=== PATIENT | male | born 1970 | race Caucasian/White ===

== ENCOUNTER 2016-07-22 14:10 | Inpatient (IN) | payer OTHER ==
[2016-07-22 15:37] VITALS: BMI 25.8
--- NOTE | 2016-07-22 17:04 | HP ---
COWS - Scale Resting Pulse: 0= [place] 80 or Below Sweatin= Chills/Flushing Restless Observation: 3= Extraneous Movement Pupil Size: 0= Normal to Room Light Bone or Joint Aches: 2= Severe Diffuse Aches Runny Nose/ Eye Tearin= Runny Nose/Eyes GI Upset > 30mins: 1= Stomach Cramp Tremor Observation: 2= Slight Tremor Visible Yawning Observation: 1= 1-2x During Session Anxiety or Irritability: 2=Irritable/Anxious Goose Flesh Skin: 0=Smooth Skin COWS Score: 14 Admission [facility] Chief Complaint: withdrawal sx Allergies/Adverse Reactions: Allergies Allergy/AdvReac Type Severity Reaction Status Date / Time No Known Allergies Allergy Verified 06/07/14 12:29 History of Present Illness: 45 years old male with long history of opium nicotine dependence has positive ppd and depression is admitted to detox Exam Limitations: No Limitations - Ebola screening Have you traveled outside of the country in the last 21 days: No Have you had contact with anyone from an Ebola affected area: No Have you been sick,other than usual withdrawal symptoms: No Do you have a fever: No - Review of Systems Constitutional: Chills, Loss of Appetite, Changes in sleep, Unintentional Wgt. Loss, Unexplained wgt Loss EENT: reports: No Symptoms Reported Respiratory: reports: No Symptoms reported Cardiac: reports: No Symptoms Reported GI: reports: Nausea, Poor Appetite, Poor Fluid Intake, Abdominal cramping : reports: No Symptoms Reported Musculoskeletal: reports: Back Pain, Joint Pain, Muscle Pain, Neck Pain Integumentary: reports: Change in Color (left inner elbow iv opium) Neuro: reports: Tremors Endocrine: reports: No Symptoms Reported Hematology: reports: No Symptoms Reported Psychiatric: reports: Judgement Intact, Orientated x3, Depressed Other Systems: Reviewed and Negative Patient History - Patient Medical History Hx Anemia: No Hx Asthma: No Hx Chronic Obstructive Pulmonary Disease (COPD): No Hx Cancer: No Hx Cardiac Disorders: No Hx Congestive Heart Failure: No Hx Hypertension: No Hx Hypercholesterolemia: No Hx Pacemaker: No HX Cerebrovascular Accident: No Hx Seizures: No Hx Dementia: No Hx Diabetes: No Hx Gastrointestinal Disorders: No Hx Liver Disease: No Hx Genitourinary Disorders: No Hx Sexually Transmitted Disorders: No Hx Renal Disease (ESRD): No Hx Thyroid Disease: No Hx Human Immunodeficiency Virus (HIV): No (negative) Hx Hepatitis C: Yes (diagnosed 2006) Hx Depression: Yes Hx Suicide Attempt: No Hx Bipolar Disorder: No Hx Schizophrenia: No - Patient Surgical History Past Surgical History: No Hx Neurologic Surgery: No Hx Cataract Extraction: No Hx Cardiac Surgery: No Hx Lung Surgery: No Hx Breast Surgery: No Hx Breast Biopsy: No Hx Abdominal Surgery: No Hx Appendectomy: No Hx Cholecystectomy: No Hx Genitourinary Surgery: No Hx Orthopedic Surgery: No Hx Hysterectomy: No - PPD History Previous Implant?: Yes Documented Results: Positive w/o proof Implanted On Prior [facility] Admission?: No PPD to be Administered?: No - Smoking Cessation Smoking history: Current every day smoker Have you smoked in the past 12 months: Yes Aproximately how many cigarettes per day: 6 If you are a former smoker, when did you quit?: 01/12/12 Cigars Per Day: 0 Hx Chewing Tobacco Use: No Initiated information on smoking cessation: Yes 'Breaking Loose' booklet given: 07/22/16 - Substance & Tx. History Hx Alcohol Use: No Hx Substance Use: Yes Substance Use Type: Heroin, Marijuana Hx Substance Use Treatment: Yes (12/17/15-12/21/15 ) - Substances Abused Heroin Route: Injection Frequency: Daily Amount used: 4 bags Age of first use: 17 Date of Last Use: 07/22/16 Marijuana/Hashish Route: Smoking Frequency: Daily Amount used: 10$ Age of first use: 16 Date of Last Use: 07/21/16 Family Disease History - Family Disease History Family Disease History: Diabetes: Father, Mother (alive) Admission Physical Exam S - Vital Signs Vital Signs: Vital Signs - 24 hr 07/22/16 15:34 Pulse Rate 80 Respiratory 18 Rate Blood Pressure 105/67 - Physical General Appearance: Yes: Appropriately Dressed, Mild Distress, Thin, Tremorous, Irritable, Sweating, Anxious HEENTM: Yes: Hearing grossly Normal, Normal ENT Inspection, Normocephalic, Normal Voice Respiratory: Yes: Chest Non-Tender, Lungs Clear, Normal Breath Sounds, No Respiratory Distress, No Accessory Muscle Use Neck: Yes: Supple, Trachea in good position Breast: Yes: Breasts Symetrical Cardiology: Yes: Regular Rhythm, Regular Rate, S1, S2 Abdominal: Yes: Non Tender, Soft, Increased Bowel Sounds Genitourinary: Yes: Within Normal Limits Back: Yes: Normal Inspection Musculoskeletal: Yes: full range of Motion, Gait Steady, Back pain, Muscle Pain Extremities: Yes: Normal Range of Motion, Non-Tender, Tremors, Other (right fore arm iv opium) Neurological: Yes: Fully Oriented, Alert, Motor Strength 5/5, Normal Response, Depressed Affect Integumentary: Yes: Warm, Track [place] Lymphatic: Yes: Within Normal Limits - Diagnostic (1) Nicotine dependence Current Visit: Yes Status: Acute Qualifiers: Nicotine product type: cigarettes Substance use status: in withdrawal Qualified Code(s): F17.213 - Nicotine dependence, cigarettes, with withdrawal (2) Opioid dependence with withdrawal Current Visit: Yes Status: Acute (3) Cannabis dependence, uncomplicated Current Visit: Yes Status: Chronic (4) Abrasion of skin Current Visit: Yes Status: Acute (5) Weight loss Current Visit: Yes Status: Acute (6) Positive PPD, treated Current Visit: Yes Status: Resolved (7) Hepatitis C antibody test positive Current Visit: Yes Status: Resolved Comment: treated (8) Depression (emotion) Current Visit: Yes Status: Suspected Qualifiers: Depression Type: dysthymia Qualified Code(s): F34.1 - Dysthymic disorder Cleared for Admission [facility] - Detox or Rehab [facility] Level of Care: Medically Managed Detox Regimen/Protocol: Methadone [facility] Breath Alcohol Content Breath Alcohol Content: 0 Urine Drug Screen - Results Drug Screen Negative: No Urine Drug Screen Results: THC-Marijuana, OPI-Opiates, PCP-Phencyclidine
[2016-07-22] MEDS ORDERED: MAGNESIUM HYDROX 2400MG/30ML ORAL SUSPENSION 30 ML CUP PO PRN (17:05)
[2016-07-22] MEDS ORDERED: METHADONE HCL 10 MG TABLET (FOR DETOX USE ONLY) PO ONE ×2 (17:05→23:00)
[2016-07-22] MEDS ORDERED: MAG HYDROX/AL HYDROX/SIMETH 30 ML UNIT-DOSE CUP PO PRN (17:05)
[2016-07-22] MEDS ORDERED: IBUPROFEN 400 MG TABLET (FP) PO PRN (17:05)
[2016-07-22] MEDS ORDERED: LOPERAMIDE HCL 2 MG CAPSULE PO PRN (17:05)
[2016-07-22] MEDS ORDERED: ACETAMINOPHEN 325 MG TABLET (FP) PO PRN (17:05)
[2016-07-22] MEDS ORDERED: guaiFENesin/D-METHORPHAN HB 10 ML UNIT-DOSE CUPS PO PRN (17:05)
[2016-07-22] MEDS ORDERED: P-EPHED 60MG/TRIPROLIDI 2.5MG TABLET PO PRN (17:05)
[2016-07-22] MEDS ORDERED: MAGNESIUM CITRATE 300 ML BOTTLE PO PRN (17:05)
[2016-07-22] MEDS ORDERED: MENTHOL/PHENOL 1 EACH UD MM PRN (17:05)
[2016-07-22] MEDS ORDERED: METHADONE HCL 10 MG TABLET (FOR DETOX USE ONLY) ONE (19:26)
[2016-07-22] MEDS: diazePAM 5 MG TABLET PO PRN (19:32)
[2016-07-22] MEDS: diphenhydrAMINE HCL 50 MG CAPSULE PO PRN (22:17)
[2016-07-22] MEDS: THIAMINE HCL 100 MG TABLET (FP) PO SCH (22:17)
[2016-07-22 23:40] LABS: URINE APPEARANCE CLEAR; URINE BILIRUBIN NEGATIVE (NEGATIVE); URINE BLOOD NEGATIVE (NEGATIVE); URINE COLOR DKYELLOW; URINE GLUCOSE (UA) NEGATIVE (NEGATIVE); URINE KETONE NEGATIVE (NEGATIVE); URINE LEUK ESTERASE NEGATIVE (NEGATIVE); URINE NITRITE NEGATIVE (NEGATIVE); URINE PROTEIN NEGATIVE (NEGATIVE); URINE UROBILINOGEN NEGATIVE E.U./dl (0.2-1.0)
[2016-07-23] MEDS: diazePAM 5 MG TABLET PO PRN ×4 (05:48→23:23)
[2016-07-23] MEDS: NICOTINE POLACRILEX 2 MG GUM BC PRN ×5 (05:49→23:24)
[2016-07-23 09:46] LABS: MCH 28.8 pg (25.7-33.7); MCHC 32.8 g/dl (32.0-35.9); MEAN CELL VOLUME 87.9 fl (80-96); PLATELET COUNT 148 K/MM3 (134-434); RDW 14.4 % (11.9-15.9); WHITE BLOOD COUNT 3.6 K/mm3 (4.0-10.0)
[2016-07-23] MEDS ORDERED: METHADONE HCL 10 MG TABLET (FOR DETOX USE ONLY) PO ONE (10:00)
--- NOTE | 2016-07-23 10:05 | EKG ---
Test Reason : Blood Pressure : / mmHG Vent. Rate : 057 BPM Atrial Rate : 057 BPM P-R Int : 136 ms QRS Dur : 086 ms QT Int : 394 ms P-R-T Axes : 051 058 017 degrees QTc Int : 383 ms SINUS BRADYCARDIA NO PREVIOUS ECGS AVAILABLE Confirmed by DOMINICK KWONG MD ([id number]) on 07/23/2016 10:05:11 AM Referred By: Confirmed By:DOMINICK KWONG MD
[2016-07-23 10:14] LABS: ALBUMIN 3.2 g/dl (3.4-5.0); ALK PHOS 70 U/L (45-117); ANION GAP 8 (8-16); BILIRUBIN,TOTAL 0.6 mg/dL (0.2-1.0); CALCIUM 8.6 mg/dL (8.5-10.1); CO2 27 mmol/L (21-32); COCKROFT - GAULT 132.29; CREATININE 0.8 mg/dL (0.7-1.3); GLUCOSE,RANDOM 89 mg/dL (74-106); SGOT/AST 20 U/L (15-37); SGPT/ALT 28 U/L (12-78); TOT PROT 6.5 g/dl (6.4-8.2)
[2016-07-23] MEDS: PRENATAL VITAMINS W/ FOLIC ACID TABLET (FP) PO SCH (10:21)
[2016-07-23] MEDS: BACITRACIN 0.9 GM PACKET TP SCH (10:21)
[2016-07-23] MEDS: NICOTINE 14 MG/24 HOURS TOPICAL PATCH TD SCH (10:21)
--- NOTE | 2016-07-23 14:29 | PN ---
BHS COWS - Scale Resting Pulse: 0= [place] 80 or Below Sweatin=Flushed/Facial Moisture Restless Observation: 1= Difficult to Sit Still Pupil Size: 0= Normal to Room Light Bone or Joint Aches: 1= Mild Discomfort Runny Nose/ Eye Tearin= Runny Nose/Eyes GI Upset > 30mins: 2= Nausea/Diarrhea Tremor Observation of Outstretched Hands: 2= Slight Tremor Visible Yawning Observation: 1= 1-2x During Session Anxiety or Irritability: 2=Irritable/Anxious Goose Flesh Skin: 0=Smooth Skin COWS Score: 13 BHS Progress Note (SOAP) Subjective: Anxiety,sweating,muscle aches/spasm,restless. Objective: 07/23/16 14:28 Vital Signs - 8 hr 07/23/16 10:33 Temperature 97.1 F L Pulse Rate 57 L Respiratory 18 Rate Blood Pressure 125/82 Laboratory Tests 07/22/16 07/23/16 07/23/16 22:35 07:00 07:00 WBC 3.6 L RBC 4.31 Hgb 12.4 Hct 37.9 MCV 87.9 MCHC 32.8 RDW 14.4 Plt Count 148 MPV 8.0 Sodium 140 Potassium 3.8 Chloride 105 Carbon Dioxide 27 Anion Gap 8 BUN 19 H Creatinine 0.8 Creat Clearance w eGFR > 60 Random Glucose 89 Calcium 8.6 Total Bilirubin 0.6 D AST 20 ALT 28 D Alkaline Phosphatase 70 Total Protein 6.5 Albumin 3.2 L Urine Color Dkyellow Urine Appearance Clear Urine pH 5.0 Ur Specific [place] 1.025 Urine Protein Negative Urine Glucose (UA) Negative Urine Ketones Negative Urine Blood Negative Urine Nitrite Negative Urine Bilirubin Negative Urine Urobilinogen Negative Ur Leukocyte Esterase Negative RPR Titer 07/23/16 07:00 WBC RBC Hgb Hct MCV MCHC RDW Plt Count MPV Sodium Potassium Chloride Carbon Dioxide Anion Gap BUN Creatinine Creat Clearance w eGFR Random Glucose Calcium Total Bilirubin AST ALT Alkaline Phosphatase Total Protein Albumin Urine Color Urine Appearance Urine pH Ur Specific [place] Urine Protein Urine Glucose (UA) Urine Ketones Urine Blood Urine Nitrite Urine Bilirubin Urine Urobilinogen Ur Leukocyte Esterase RPR Titer Nonreactive labs noted Assessment: 07/23/16 14:29 Withdrawal sx. Plan: Continue detox
--- NOTE | 2016-07-23 15:29 | CONSULT ---
[facility] Psychiatric Consult - Data Date of interview: 07/23/16 Admission source: [facility] Identifying data: [facility]mission [facility] for this 45 y/o male seeking detoox treatment for heroin,marijuana and phencyclidine dependence.Patient is single without children,domiciled,unemployed and supported on welfare. Substance Abuse History: - Smoking Cessation. Smoking history: Current every day smoker. Have you smoked in the past 12 months: Yes. Aproximately how many cigarettes per day: 6. If you are a former smoker, when did you quit?: . Cigars Per Day: 0. Hx Chewing Tobacco Use: No. Initiated information on smoking cessation: Yes. 'Breaking Loose' booklet given: 07/22/16. - Substance & Tx. History. Hx Alcohol Use: No. Hx Substance Use: Yes. Substance Use Type : Heroin, Marijuana. Hx Substance Use Treatment: Yes (12/17/15-12/21/15 ). - Substances Abused. Heroin. Route: Injection. Frequency: Daily. Amount used: 4 bags. Age of first use: 17. Date of Last Use: 07/22/16. Marijuana/ Hashish. Route: Smoking. Frequency: Daily. Amount used: 10$. Age of first use: 16. Date of Last Use: 07/21/16. Confirmed by patient. Medical History: Hepatitis C. Psychiatric History: Patient denies. Physical/Sexual Abuse/Trauma History: Patient denies. Additional Comment: Urine Drug Screen Results: THC-Marijuana, OPI-Opiates, PCP- Phencyclidine.Noted. Mental Status Exam - Mental Status Exam Alert and Oriented to: Time, Place, Person Cognitive Function: Good Patient Appearance: Well Groomed Mood: Nervous (dysphoric), Anxious Affect: Appropriate, Normal Range Patient Behavior: Appropriate, Cooperative Speech Pattern: Clear Voice Loudness: Normal Thought Process: Goal Oriented Thought Disorder: Not Present Hallucinations: Denies Suicidal Ideation: Denies Homicidal Ideation: Denies Insight/Judgement: Poor Sleep: Fair Appetite: Good Muscle strength/Tone: Normal Gait/Station: Normal Psychiatric Findings - Problem List ([place] 1, 2,3) (1) Opioid dependence with withdrawal Current Visit: Yes Status: Acute (2) Cannabis dependence, uncomplicated Current Visit: Yes Status: Acute (3) PCP dependence Current Visit: Yes Status: Acute (4) Nicotine dependence Current Visit: Yes Status: Acute Qualifiers: Nicotine product type: cigarettes Substance use status: in withdrawal Qualified Code(s): F17.213 - Nicotine dependence, cigarettes, with withdrawal (5) Substance induced mood disorder Current Visit: Yes Status: Acute (6) Hepatitis C antibody test positive Current Visit: Yes Status: Resolved Comment: treated (7) Positive PPD, treated Current Visit: Yes Status: Resolved (8) Chronic low back pain Current Visit: Yes Status: Chronic - Initial Treatment Plan Initial Treatment Plan: Psychoeducation.Detoxification in progress.Observation.
[2016-07-23] MEDS: THIAMINE HCL 100 MG TABLET (FP) PO SCH (22:35)
[2016-07-23] MEDS: diphenhydrAMINE HCL 50 MG CAPSULE PO PRN (23:21)
[2016-07-24] MEDS ORDERED: METHADONE HCL 5 MG TABLET (FOR DETOX USE ONLY) PO ONE (10:00)
[2016-07-24] MEDS: BACITRACIN 0.9 GM PACKET TP SCH (10:07)
[2016-07-24] MEDS: PRENATAL VITAMINS W/ FOLIC ACID TABLET (FP) PO SCH (10:08)
[2016-07-24] MEDS: NICOTINE 14 MG/24 HOURS TOPICAL PATCH TD SCH (10:08)
[2016-07-24] MEDS: diazePAM 5 MG TABLET PO PRN ×3 (10:10→22:10)
[2016-07-24] MEDS: NICOTINE POLACRILEX 2 MG GUM BC PRN ×3 (10:49→22:10)
--- NOTE | 2016-07-24 19:06 | PN ---
BHS COWS - Scale Resting Pulse: 0= [place] 80 or Below Sweatin=Flushed/Facial Moisture Restless Observation: 1= Difficult to Sit Still Pupil Size: 0= Normal to Room Light Bone or Joint Aches: 2= Severe Diffuse Aches Runny Nose/ Eye Tearin= Runny Nose/Eyes GI Upset > 30mins: 1= Stomach Cramp Tremor Observation of Outstretched Hands: 2= Slight Tremor Visible Yawning Observation: 1= 1-2x During Session Anxiety or Irritability: 2=Irritable/Anxious Goose Flesh Skin: 0=Smooth Skin COWS Score: 13 BHS Progress Note (SOAP) Subjective: Tremors, Constipation, Stomach Cramping, Sweating. Objective: PT. A & O X 3, OBSERVED AMBULATING ON UNIT. NO ACUTE DISTRESS. 07/24/16 19:04 Vital Signs Temperature 97 F L 07/24/16 17:40 Pulse Rate 63 07/24/16 17:40 Respiratory Rate 16 07/24/16 17:40 Blood Pressure 108/58 07/24/16 17:40 O2 Sat by Pulse Oximetry (%) Laboratory Tests 07/22/16 07/23/16 07/23/16 22:35 07:00 07:00 WBC 3.6 L RBC 4.31 Hgb 12.4 Hct 37.9 MCV 87.9 MCHC 32.8 RDW 14.4 Plt Count 148 MPV 8.0 Sodium 140 Potassium 3.8 Chloride 105 Carbon Dioxide 27 Anion Gap 8 BUN 19 H Creatinine 0.8 Creat Clearance w eGFR > 60 Random Glucose 89 Calcium 8.6 Total Bilirubin 0.6 D AST 20 ALT 28 D Alkaline Phosphatase 70 Total Protein 6.5 Albumin 3.2 L Urine Color Dkyellow Urine Appearance Clear Urine pH 5.0 Ur Specific [place] 1.025 Urine Protein Negative Urine Glucose (UA) Negative Urine Ketones Negative Urine Blood Negative Urine Nitrite Negative Urine Bilirubin Negative Urine Urobilinogen Negative Ur Leukocyte Esterase Negative RPR Titer 07/23/16 07:00 WBC RBC Hgb Hct MCV MCHC RDW Plt Count MPV Sodium Potassium Chloride Carbon Dioxide Anion Gap BUN Creatinine Creat Clearance w eGFR Random Glucose Calcium Total Bilirubin AST ALT Alkaline Phosphatase Total Protein Albumin Urine Color Urine Appearance Urine pH Ur Specific [place] Urine Protein Urine Glucose (UA) Urine Ketones Urine Blood Urine Nitrite Urine Bilirubin Urine Urobilinogen Ur Leukocyte Esterase RPR Titer Nonreactive LABS NOTED. Assessment: 07/24/16 19:05 WITHDRAWAL SYMPTOMS. Plan: CONTINUE DETOX. INCREASE PO FLUID INTAKE.
[2016-07-24] MEDS: THIAMINE HCL 100 MG TABLET (FP) PO SCH (22:09)
[2016-07-24] MEDS: diphenhydrAMINE HCL 50 MG CAPSULE PO PRN (22:09)
[2016-07-25] MEDS ORDERED: METHADONE HCL 5 MG TABLET (FOR DETOX USE ONLY) PO ONE (10:00)
[2016-07-25] MEDS: PRENATAL VITAMINS W/ FOLIC ACID TABLET (FP) PO SCH (10:11)
[2016-07-25] MEDS: BACITRACIN 0.9 GM PACKET TP SCH (10:11)
[2016-07-25] MEDS: NICOTINE 14 MG/24 HOURS TOPICAL PATCH TD SCH (10:11)
[2016-07-25] MEDS: diazePAM 5 MG TABLET PO PRN ×2 (10:13→17:03)
[2016-07-25] MEDS: NICOTINE POLACRILEX 2 MG GUM BC PRN (10:14)
[2016-07-25] MEDS: CYCLOBENZAPRINE HCL 10 MG TABLET (FP) PO PRN (11:36)
--- NOTE | 2016-07-25 15:04 | PN ---
S Progress Note (SOAP) Subjective: Sweating, constipated x 2 (stating he will request citroma tonight), anxious, restless, yawning Objective: 07/25/16 15:02 Last Vital Signs Temp Pulse Resp BP Pulse Ox 97.1 F L 70 18 98/68 07/25/16 13:13 07/25/16 13:13 07/25/16 13:13 07/25/16 13:13 Laboratory Tests 07/22/16 07/23/16 07/23/16 22:35 07:00 07:00 WBC 3.6 L RBC 4.31 Hgb 12.4 Hct 37.9 MCV 87.9 MCHC 32.8 RDW 14.4 Plt Count 148 MPV 8.0 Sodium 140 Potassium 3.8 Chloride 105 Carbon Dioxide 27 Anion Gap 8 BUN 19 H Creatinine 0.8 Creat Clearance w eGFR > 60 Random Glucose 89 Calcium 8.6 Total Bilirubin 0.6 D AST 20 ALT 28 D Alkaline Phosphatase 70 Total Protein 6.5 Albumin 3.2 L Urine Color Dkyellow Urine Appearance Clear Urine pH 5.0 Ur Specific [place] 1.025 Urine Protein Negative Urine Glucose (UA) Negative Urine Ketones Negative Urine Blood Negative Urine Nitrite Negative Urine Bilirubin Negative Urine Urobilinogen Negative Ur Leukocyte Esterase Negative RPR Titer 07/23/16 07:00 WBC RBC Hgb Hct MCV MCHC RDW Plt Count MPV Sodium Potassium Chloride Carbon Dioxide Anion Gap BUN Creatinine Creat Clearance w eGFR Random Glucose Calcium Total Bilirubin AST ALT Alkaline Phosphatase Total Protein Albumin Urine Color Urine Appearance Urine pH Ur Specific [place] Urine Protein Urine Glucose (UA) Urine Ketones Urine Blood Urine Nitrite Urine Bilirubin Urine Urobilinogen Ur Leukocyte Esterase RPR Titer Nonreactive Labs noted Assessment: 07/25/16 15:03 Withdrawal symptoms Plan: Continue detox
[2016-07-25] MEDS: THIAMINE HCL 100 MG TABLET (FP) PO SCH (22:08)
[2016-07-25] MEDS: diphenhydrAMINE HCL 50 MG CAPSULE PO PRN (22:10)
[2016-07-26] MEDS ORDERED: METHADONE HCL 10 MG TABLET (FOR DETOX USE ONLY) PO ONE (10:00)
[2016-07-26] MEDS: BACITRACIN 0.9 GM PACKET TP SCH (10:09)
[2016-07-26] MEDS: PRENATAL VITAMINS W/ FOLIC ACID TABLET (FP) PO SCH (10:09)
[2016-07-26] MEDS: NICOTINE 14 MG/24 HOURS TOPICAL PATCH TD SCH (10:10)
[2016-07-26] MEDS: CYCLOBENZAPRINE HCL 10 MG TABLET (FP) PO PRN ×2 (13:14→22:16)
[2016-07-26] MEDS: NICOTINE POLACRILEX 2 MG GUM BC PRN ×2 (13:15→21:52)
--- NOTE | 2016-07-26 13:54 | PN ---
BHS Progress Note (SOAP) Subjective: Sweating,interrupted sleep,restless Objective: 07/26/16 13:53 Vital Signs - 8 hr 07/26/16 07/26/16 07/26/16 06:19 09:34 13:39 Temperature 97.2 F L 96.8 F L 96.8 F L Pulse Rate 63 73 71 Respiratory 16 20 18 Rate Blood Pressure 104/65 107/74 106/62 Laboratory Last Values WBC 3.6 K/mm3 (4.0-10.0) L 07/23/16 07:00 RBC 4.31 M/mm3 (4.00-5.60) 07/23/16 07:00 Hgb 12.4 GM/dL (11.7-16.9) 07/23/16 07:00 Hct 37.9 % (35.4-49) 07/23/16 07:00 MCV 87.9 fl (80-96) 07/23/16 07:00 MCHC 32.8 g/dl (32.0-35.9) 07/23/16 07:00 RDW 14.4 % (11.9-15.9) 07/23/16 07:00 Plt Count 148 K/MM3 (134-434) 07/23/16 07:00 MPV 8.0 fl (7.5-11.1) 07/23/16 07:00 Sodium 140 mmol/L (136-145) 07/23/16 07:00 Potassium 3.8 mmol/L (3.5-5.1) 07/23/16 07:00 Chloride 105 mmol/L (98-107) 07/23/16 07:00 Carbon Dioxide 27 mmol/L (21-32) 07/23/16 07:00 Anion Gap 8 (8-16) 07/23/16 07:00 BUN 19 mg/dL (7-18) H 07/23/16 07:00 Creatinine 0.8 mg/dL (0.7-1.3) 07/23/16 07:00 Creat Clearance w eGFR > 60 (>60) 07/23/16 07:00 Random Glucose 89 mg/dL (74-106) 07/23/16 07:00 Calcium 8.6 mg/dL (8.5-10.1) 07/23/16 07:00 Total Bilirubin 0.6 mg/dL (0.2-1.0) D 07/23/16 07:00 AST 20 U/L (15-37) 07/23/16 07:00 ALT 28 U/L (12-78) D 07/23/16 07:00 Alkaline Phosphatase 70 U/L (45-117) 07/23/16 07:00 Total Protein 6.5 g/dl (6.4-8.2) 07/23/16 07:00 Albumin 3.2 g/dl (3.4-5.0) L 07/23/16 07:00 Urine Color Dkyellow 07/22/16 22:35 Urine Appearance Clear 07/22/16 22:35 Urine pH 5.0 (5.0-8.0) 07/22/16 22:35 Ur Specific [place] 1.025 (1.005-1.025) 07/22/16 22:35 Urine Protein Negative (NEGATIVE) 07/22/16 22:35 Urine Glucose (UA) Negative (NEGATIVE) 07/22/16 22:35 Urine Ketones Negative (NEGATIVE) 07/22/16 22:35 Urine Blood Negative (NEGATIVE) 07/22/16 22:35 Urine Nitrite Negative (NEGATIVE) 07/22/16 22:35 Urine Bilirubin Negative (NEGATIVE) 07/22/16 22:35 Urine Urobilinogen Negative E.U./dl (0.2-1.0) 07/22/16 22:35 Ur Leukocyte Esterase Negative (NEGATIVE) 07/22/16 22:35 RPR Titer Nonreactive (NONREACTIVE) 07/23/16 07:00 labs noted Assessment: 07/26/16 13:53 Withdrawal Sx. Plan: Continue detox
[2016-07-26] MEDS: diphenhydrAMINE HCL 50 MG CAPSULE PO PRN (22:15)
[2016-07-26] MEDS: THIAMINE HCL 100 MG TABLET (FP) PO SCH (22:15)
[2016-07-27] MEDS: CYCLOBENZAPRINE HCL 10 MG TABLET (FP) PO PRN (05:36)
[2016-07-27] MEDS: NICOTINE POLACRILEX 2 MG GUM BC PRN (05:39)
[2016-07-27] MEDS ORDERED: METHADONE HCL 5 MG TABLET (FOR DETOX USE ONLY) PO ONE (06:00)
[2016-07-27 09:27] VITALS: BP 113/76; PULSE 73; TEMP 98.7
--- NOTE | 2016-07-27 11:22 | DS ---
[facility] Detox Discharge Summary Admission Date: 07/22/16 Discharge Date: 07/27/16 - History Present History: Cannabis Dependence Additional Comments: DETOX COMPLETED. ALERT O X 3. NAD. Pertinent Past History: CHRONIC LBP HEP C DEPRESSION - Physical Exam Results Vital Signs: Vital Signs Temperature 98.7 F 07/27/16 09:27 Pulse Rate 73 07/27/16 09:27 Respiratory Rate 18 07/27/16 09:27 Blood Pressure 113/76 07/27/16 09:27 O2 Sat by Pulse Oximetry (%) Pertinent Admission Physical Exam Findings: WITHDRAWAL SX Laboratory Last Values WBC 3.6 K/mm3 (4.0-10.0) L 07/23/16 07:00 RBC 4.31 M/mm3 (4.00-5.60) 07/23/16 07:00 Hgb 12.4 GM/dL (11.7-16.9) 07/23/16 07:00 Hct 37.9 % (35.4-49) 07/23/16 07:00 MCV 87.9 fl (80-96) 07/23/16 07:00 MCHC 32.8 g/dl (32.0-35.9) 07/23/16 07:00 RDW 14.4 % (11.9-15.9) 07/23/16 07:00 Plt Count 148 K/MM3 (134-434) 07/23/16 07:00 MPV 8.0 fl (7.5-11.1) 07/23/16 07:00 Sodium 140 mmol/L (136-145) 07/23/16 07:00 Potassium 3.8 mmol/L (3.5-5.1) 07/23/16 07:00 Chloride 105 mmol/L (98-107) 07/23/16 07:00 Carbon Dioxide 27 mmol/L (21-32) 07/23/16 07:00 Anion Gap 8 (8-16) 07/23/16 07:00 BUN 19 mg/dL (7-18) H 07/23/16 07:00 Creatinine 0.8 mg/dL (0.7-1.3) 07/23/16 07:00 Creat Clearance w eGFR > 60 (>60) 07/23/16 07:00 Random Glucose 89 mg/dL (74-106) 07/23/16 07:00 Calcium 8.6 mg/dL (8.5-10.1) 07/23/16 07:00 Total Bilirubin 0.6 mg/dL (0.2-1.0) D 07/23/16 07:00 AST 20 U/L (15-37) 07/23/16 07:00 ALT 28 U/L (12-78) D 07/23/16 07:00 Alkaline Phosphatase 70 U/L (45-117) 07/23/16 07:00 Total Protein 6.5 g/dl (6.4-8.2) 07/23/16 07:00 Albumin 3.2 g/dl (3.4-5.0) L 07/23/16 07:00 Urine Color Dkyellow 07/22/16 22:35 Urine Appearance Clear 07/22/16 22:35 Urine pH 5.0 (5.0-8.0) 07/22/16 22:35 Ur Specific [place] 1.025 (1.005-1.025) 07/22/16 22:35 Urine Protein Negative (NEGATIVE) 07/22/16 22:35 Urine Glucose (UA) Negative (NEGATIVE) 07/22/16 22:35 Urine Ketones Negative (NEGATIVE) 07/22/16 22:35 Urine Blood Negative (NEGATIVE) 07/22/16 22:35 Urine Nitrite Negative (NEGATIVE) 07/22/16 22:35 Urine Bilirubin Negative (NEGATIVE) 07/22/16 22:35 Urine Urobilinogen Negative E.U./dl (0.2-1.0) 07/22/16 22:35 Ur Leukocyte Esterase Negative (NEGATIVE) 07/22/16 22:35 RPR Titer Nonreactive (NONREACTIVE) 07/23/16 07:00 - Treatment Hospital Course: Detox Protocol Followed, Detoxed Safely, Responded well, Discharged Condition Good, Rehab Referral Accepted Patient has Accepted a Rehab Referral to: [facility] - Medication Discharge Medications: Ambulatory Orders NK [No Known Home Medication] 12/16/14 - Diagnosis (1) Cannabis dependence, uncomplicated Status: Acute (2) Nicotine dependence Status: Acute Qualifiers: Nicotine product type: cigarettes Substance use status: in withdrawal Qualified Code(s): F17.213 - Nicotine dependence, cigarettes, with withdrawal (3) Opioid dependence with withdrawal Status: Acute (4) Weight loss Status: Acute - AMA Did Patient Leave Against Medical Advice: No
== END 2016-07-27 09:00 | disposition home or self-care (01) | DRG 773 ==
LOC: YASAS 14:10 → Y3N 18:56
PROVIDERS: ADMIT Internal Medicine; ATTEND Internal Medicine
PROC: HZ2ZZZZ Detoxification Services for Substance Abuse Treatment (ICD-10-PCS; principal; 2016-07-22)
DX: F11.23 Opioid dependence with withdrawal (principal); F12.20 Cannabis dependence, uncomplicated; F16.20 Hallucinogen dependence, uncomplicated; F17.210 Nicotine dependence, cigarettes, uncomplicated; F19.24 Other psychoactive substance dependence with psychoactive substance-induced mood disorder; B18.2 Chronic viral hepatitis C; R76.11 Nonspecific reaction to tuberculin skin test without active tuberculosis; M54.5 Low back pain; G89.29 Other chronic pain; Z87.898 Personal history of other specified conditions; T14.8 Other injury of unspecified body region; X58.XXXA Exposure to other specified factors, initial encounter; Y93.9 Activity, unspecified; Y92.9 Unspecified place or not applicable
CPT/HCPCS: 36415; 71020-TC; 80053; 81003; 85027; 86593; 93005; 93010

== ENCOUNTER 2016-09-01 09:10 | Inpatient (IN) | payer OTHER ==
[2016-09-01 11:32] VITALS: BMI 22.8
--- NOTE | 2016-09-01 14:01 | HP ---
COWS - Scale Resting Pulse: 0= [place] 80 or Below Sweatin= No chills or Flushing Restless Observation: 3= Extraneous Movement Pupil Size: 2= Moderately Dilated Bone or Joint Aches: 4=Acute Joint/Muscle Pain Runny Nose/ Eye Tearin= Nasal Congestion GI Upset > 30mins: 1= Stomach Cramp Tremor Observation: 1= Tremor [place], Not Seen Yawning Observation: 2= >3x During Session Anxiety or Irritability: 2=Irritable/Anxious Goose Flesh Skin: 0=Smooth Skin COWS Score: 16 Admission ROS S - HPI Chief Complaint: DETOX TX FOR HEROIN DEPENDENCE Allergies/Adverse Reactions: Allergies Allergy/AdvReac Type Severity Reaction Status Date / Time No Known Allergies Allergy Verified 09/01/16 11:33 History of Present Illness: 46 Y/O H/M WITH HX OF HEROIN, MARIJUANA AND PCP DEPENDENCE SEEKING DETOX [place] Exam Limitations: No Limitations - Ebola screening Have you traveled outside of the country in the last 21 days: No Have you had contact with anyone from an Ebola affected area: No Have you been sick,other than usual withdrawal symptoms: No Do you have a fever: No - Review of Systems Constitutional: Chills, Loss of Appetite, Night Sweats, Unintentional Wgt. Loss Respiratory: reports: No Symptoms reported Cardiac: reports: No Symptoms Reported GI: reports: Constipated : reports: No Symptoms Reported Musculoskeletal: reports: Back Pain, Joint Pain, Muscle Pain Integumentary: reports: Bruising (IVD INJ SITE ON LEFT FOREARM) Endocrine: reports: No Symptoms Reported Hematology: reports: No Symptoms Reported Psychiatric: reports: Orientated x3, Anxious, Depressed Other Systems: Reviewed and Negative Patient History - Patient Medical History Hx Anemia: No Hx Asthma: No Hx Chronic Obstructive Pulmonary Disease (COPD): No Hx Cancer: No Hx Cardiac Disorders: No Hx Congestive Heart Failure: No Hx Hypertension: No Hx Hypercholesterolemia: No Hx Pacemaker: No HX Cerebrovascular Accident: No Hx Seizures: No Hx Dementia: No Hx Diabetes: No Hx Gastrointestinal Disorders: No Hx Liver Disease: No Hx Genitourinary Disorders: No Hx Sexually Transmitted Disorders: No Hx Renal Disease (ESRD): No Hx Thyroid Disease: No Hx Human Immunodeficiency Virus (HIV): No (NEGATIVE HX) Hx Hepatitis C: Yes (diagnosed 2006) Hx Depression: Yes (NO CURRENT MED) Hx Suicide Attempt: No (DENIES) Hx Bipolar Disorder: No Hx Schizophrenia: No - Patient Surgical History Past Surgical History: No Hx Neurologic Surgery: No Hx Cataract Extraction: No Hx Cardiac Surgery: No Hx Lung Surgery: No Hx Breast Surgery: No Hx Breast Biopsy: No Hx Abdominal Surgery: No Hx Appendectomy: No Hx Cholecystectomy: No Hx Genitourinary Surgery: No Hx Orthopedic Surgery: No Anesthesia Reaction: No - PPD History Previous Implant?: Yes Documented Results: Positive w/o proof Implanted On Prior [facility] Admission?: No PPD to be Administered?: No - Reproductive History Patient is a Female of Child Bearing Age (11 -55 yrs old): No (MALE) Patient : (N/C) - Smoking Cessation Smoking history: Current every day smoker Have you smoked in the past 12 months: Yes Aproximately how many cigarettes per day: 10 If you are a former smoker, when did you quit?: 01/12/12 Cigars Per Day: 0 Hx Chewing Tobacco Use: No Initiated information on smoking cessation: Yes 'Breaking Loose' booklet given: 09/01/16 - Substance & Tx. History Hx Alcohol Use: Yes (STATES INACTIVE) Hx Substance Use: Yes (HEROIN/MARIJUANA/PCP) - Substances Abused Heroin Route: Injection Frequency: Daily Amount used: 3 BAGS Age of first use: 17 Date of Last Use: 08/31/16 PCP Route: Smoking Frequency: Daily Amount used: 1 BAG Age of first use: 17 Date of Last Use: 08/31/16 Marijuana/Hashish Route: Smoking Frequency: Daily Amount used: 1 BAG Age of first use: 16 Date of Last Use: 08/31/16 Family Disease History - Family Disease History Family Disease History: Diabetes: Father, Mother (alive) Admission Physical Exam [facility] - Vital Signs Vital Signs: Vital Signs - 24 hr 09/01/16 11:30 Temperature 97.4 F L Pulse Rate 59 L Respiratory 18 Rate Blood Pressure 125/73 - Physical General Appearance: Yes: Moderate Distress, Irritable, Anxious HEENTM: Yes: EOMI, Normocephalic, RAJEEV, Pharynx Normal Respiratory: Yes: Chest Non-Tender, Lungs Clear, Normal Breath Sounds, No Respiratory Distress Neck: Yes: Supple, Trachea in good position Breast: Yes: Breast Exam Deferred Cardiology: Yes: Regular Rhythm, Regular Rate, S1, S2 Abdominal: Yes: Non Tender, Soft Genitourinary: Yes: Other (N/C) Back: Yes: Within Normal Limits Musculoskeletal: Yes: full range of Motion, Gait Steady Extremities: Yes: Normal Range of Motion, Non-Tender Neurological: Yes: loom operator II-XII NML intact, Fully Oriented, Alert, Motor Strength 5/5 Integumentary: Yes: Dry, Warm, Track [place] (LEFT FOREARM-NO REDNESS OR SWELLING) Lymphatic: Yes: Within Normal Limits - Diagnostic (1) Cannabis dependence, uncomplicated Status: Acute (2) Chronic low back pain Status: Chronic Qualifiers: Back pain laterality: unspecified (3) Nicotine dependence Status: Acute Qualifiers: Nicotine product type: cigarettes Substance use status: in withdrawal Qualified Code(s): F17.213 - Nicotine dependence, cigarettes, with withdrawal (4) Opioid dependence with withdrawal Status: Acute (5) PCP dependence Status: Acute Cleared for Admission [facility] - Detox or Rehab [facility] Level of Care: Medically Managed Detox Regimen/Protocol: Methadone [facility] Breath Alcohol Content Breath Alcohol Content: 0 Urine Drug Screen - Results Drug Screen Negative: No Urine Drug Screen Results: THC-Marijuana, OPI-Opiates, PCP-Phencyclidine
[2016-09-01] MEDS ORDERED: MAG HYDROX/AL HYDROX/SIMETH 30 ML UNIT-DOSE CUP PO PRN (14:10)
[2016-09-01] MEDS ORDERED: LOPERAMIDE HCL 2 MG CAPSULE PO PRN (14:10)
[2016-09-01] MEDS ORDERED: P-EPHED 60MG/TRIPROLIDI 2.5MG TABLET PO PRN (14:10)
[2016-09-01] MEDS ORDERED: ACETAMINOPHEN 325 MG TABLET (FP) PO PRN (14:10)
[2016-09-01] MEDS ORDERED: MAGNESIUM HYDROX 2400MG/30ML ORAL SUSPENSION 30 ML CUP PO PRN (14:10)
[2016-09-01] MEDS ORDERED: MAGNESIUM CITRATE 300 ML BOTTLE PO PRN (14:10)
[2016-09-01] MEDS ORDERED: MENTHOL/PHENOL 1 EACH UD MM PRN (14:10)
[2016-09-01] MEDS ORDERED: IBUPROFEN 400 MG TABLET (FP) PO PRN (14:10)
[2016-09-01] MEDS ORDERED: guaiFENesin/D-METHORPHAN HB 10 ML UNIT-DOSE CUPS PO PRN (14:10)
[2016-09-01] MEDS ORDERED: METHADONE HCL 10 MG TABLET (FOR DETOX USE ONLY) PO ONE ×2 (14:32→23:00)
[2016-09-01] MEDS: diazePAM 5 MG TABLET PO PRN ×2 (15:24→19:43)
[2016-09-01] MEDS: NICOTINE 14 MG/24 HOURS TOPICAL PATCH TD SCH (15:24)
[2016-09-01] MEDS: NICOTINE POLACRILEX 2 MG GUM BUC PRN (15:27)
[2016-09-01 17:15] LABS: MCH 28.8 pg (25.7-33.7); MCHC 33.1 g/dl (32.0-35.9); MEAN CELL VOLUME 86.9 fl (80-96); MEAN PLT VOLUME 8.1 fl (7.5-11.1); PLATELET COUNT 210 K/MM3 (134-434); RDW 13.8 % (11.9-15.9); WHITE BLOOD COUNT 6.1 K/mm3 (4.0-10.0)
[2016-09-01 17:38] LABS: URINE APPEARANCE CLEAR; URINE BILIRUBIN NEGATIVE (NEGATIVE); URINE BLOOD NEGATIVE (NEGATIVE); URINE COLOR YELLOW; URINE GLUCOSE (UA) NEGATIVE (NEGATIVE); URINE KETONE NEGATIVE (NEGATIVE); URINE LEUK ESTERASE NEGATIVE (NEGATIVE); URINE NITRITE NEGATIVE (NEGATIVE); URINE PROTEIN NEGATIVE (NEGATIVE); URINE UROBILINOGEN NEGATIVE mg/dL (0.2-1.0)
[2016-09-01 17:49] LABS: ALBUMIN 4.1 g/dl (3.4-5.0); ANION GAP 6 (8-16); CALCIUM 9.2 mg/dL (8.5-10.1); CO2 29 mmol/L (21-32); CREATININE 0.6 mg/dL (0.7-1.3); GLUCOSE,RANDOM 85 mg/dL (74-106); SGOT/AST 31 U/L (15-37); SGPT/ALT 44 U/L (12-78)
--- NOTE | 2016-09-01 17:50 | CONSULT ---
[facility] Psychiatric Consult - Data Date of interview: 09/01/16 Admission source: [facility] Identifying data: This is another admission to [facility] for this 46 y/o [place]born male ,seeking detox treatment on for heroin,cocaine, marijuana and phencyclidine dependence.Patient is single without children, domiciled,unemployed and supported on welfare. Substance Abuse History: Extensive history of substance abuse : heroin since age 17 via IV route (3 bags/day),cocaine since adolescence via IV/sorting/ smoking (100 dollars/day minimum),PCP since age 18 (30 dollars/day) and marihuana (2 blunts/day).Smokes 1/2 pack of cigarettes/day.Substances last used on 08/31/16. Medical History: Hepatitis C. Psychiatric History: Patient denies. Physical/Sexual Abuse/Trauma History: Patient denies. Additional Comment: Urine Drug Screen Results: THC-Marijuana, OPI-Opiates, PCP- Phencyclidine as per [facility] report.Noted. Mental Status Exam - Mental Status Exam Alert and Oriented to: Time, Place, Person Cognitive Function: Good Patient Appearance: Well Groomed Mood: Apprehensive, Hopeful Affect: Mood Congruent Patient Behavior: Fatigued, Appropriate, Cooperative Speech Pattern: Clear (bilingual,coherent) Voice Loudness: Normal Thought Process: Intact, Goal Oriented Thought Disorder: Not Present Hallucinations: Denies Suicidal Ideation: Denies Homicidal Ideation: Denies Insight/Judgement: Poor Sleep: Well Appetite: Good Muscle strength/Tone: Normal Gait/Station: Normal Psychiatric Findings - Problem List ([place] 1, 2,3) (1) Opioid dependence with withdrawal Current Visit: Yes Status: Acute (2) Cannabis dependence, uncomplicated Current Visit: Yes Status: Acute (3) PCP dependence Current Visit: Yes Status: Acute (4) Nicotine dependence Current Visit: Yes Status: Acute Qualifiers: Nicotine product type: cigarettes Substance use status: in withdrawal Qualified Code(s): F17.213 - Nicotine dependence, cigarettes, with withdrawal (5) Substance induced mood disorder Current Visit: Yes Status: Acute - Initial Treatment Plan Initial Treatment Plan: Psychoeducation.Detoxification in progress.Observation.
[2016-09-01 17:51] LABS: ALK PHOS 79 U/L (45-117); BILIRUBIN,TOTAL 0.6 mg/dL (0.2-1.0); TOT PROT 7.8 g/dl (6.4-8.2)
[2016-09-01] MEDS: THIAMINE HCL 100 MG TABLET (FP) PO SCH (22:09)
[2016-09-01] MEDS: diphenhydrAMINE HCL 50 MG CAPSULE PO PRN (22:09)
[2016-09-02] MEDS ORDERED: METHADONE HCL 10 MG TABLET (FOR DETOX USE ONLY) PO ONE (10:00)
[2016-09-02] MEDS: PRENATAL VITAMINS W/ FOLIC ACID TABLET (FP) PO SCH (10:11)
[2016-09-02] MEDS: diazePAM 5 MG TABLET PO PRN ×3 (10:12→20:30)
[2016-09-02] MEDS: NICOTINE POLACRILEX 2 MG GUM BUC PRN ×3 (10:13→22:43)
[2016-09-02] MEDS: NICOTINE 14 MG/24 HOURS TOPICAL PATCH TD SCH (10:13)
[2016-09-02 10:38] LABS: HIV 1 & 2 AB NEGATIVE; HIV 1 AGp24 NEGATIVE
--- NOTE | 2016-09-02 11:33 | PN ---
BHS COWS - Scale Resting Pulse: 0= [place] 80 or Below Sweatin= Chills/Flushing Restless Observation: 3= Extraneous Movement Pupil Size: 1= Pupils >than Normal Bone or Joint Aches: 2= Severe Diffuse Aches Runny Nose/ Eye Tearin= Runny Nose/Eyes GI Upset > 30mins: 2= Nausea/Diarrhea Tremor Observation of Outstretched Hands: 2= Slight Tremor Visible Yawning Observation: 1= 1-2x During Session Anxiety or Irritability: 2=Irritable/Anxious Goose Flesh Skin: 0=Smooth Skin COWS Score: 16 BHS Progress Note (SOAP) Subjective: ALERT,IRRITABLE,ANXIOUS,TREMOR,PAIN IN THE BODY AND BACK Objective: 09/02/16 11:31 Vital Signs Temperature 97.9 F 09/02/16 10:00 Pulse Rate 71 09/02/16 10:00 Respiratory Rate 18 09/02/16 10:00 Blood Pressure 102/63 09/02/16 10:00 O2 Sat by Pulse Oximetry (%) Assessment: 09/02/16 11:31 WITHDRAWAL SYMPTOM EKG SINUS BRADYCARDIA 59/MIN NO CHEST PAIN,NO SOB,NO DIZZINESS LABS PENDING Plan: CONTINUE DETOX
[2016-09-02] MEDS: TOLNAFTATE 1% CREAM 15 GM TUBE TP SCH ×2 (12:13→22:44)
--- NOTE | 2016-09-02 16:38 | EKG ---
Test Reason : Blood Pressure : / mmHG Vent. Rate : 059 BPM Atrial Rate : 059 BPM P-R Int : 146 ms QRS Dur : 088 ms QT Int : 428 ms P-R-T Axes : 060 063 036 degrees QTc Int : 423 ms SINUS BRADYCARDIA OTHERWISE NORMAL ECG WHEN COMPARED WITH ECG OF 22-JUL-2016 18:34, NO SIGNIFICANT CHANGE WAS FOUND Confirmed by TC WASHINGTON MD ([id number]) on 09/02/2016 4:38:25 PM Referred By: REYES Confirmed By:TC WASHINGTON MD
[2016-09-02] MEDS: diphenhydrAMINE HCL 50 MG CAPSULE PO PRN (22:44)
[2016-09-02] MEDS: THIAMINE HCL 100 MG TABLET (FP) PO SCH (22:44)
[2016-09-03] MEDS ORDERED: METHADONE HCL 5 MG TABLET (FOR DETOX USE ONLY) PO ONE (10:00)
[2016-09-03] MEDS: TOLNAFTATE 1% CREAM 15 GM TUBE TP SCH ×2 (10:29→22:06)
[2016-09-03] MEDS: PRENATAL VITAMINS W/ FOLIC ACID TABLET (FP) PO SCH (10:29)
[2016-09-03] MEDS: NICOTINE 14 MG/24 HOURS TOPICAL PATCH TD SCH (10:30)
[2016-09-03] MEDS: diazePAM 5 MG TABLET PO PRN ×4 (10:32→22:06)
--- NOTE | 2016-09-03 11:02 | PN ---
BHS COWS - Scale Resting Pulse: 0= [place] 80 or Below Sweatin= Chills/Flushing Restless Observation: 1= Difficult to Sit Still Pupil Size: 1= Pupils >than Normal Bone or Joint Aches: 2= Severe Diffuse Aches Runny Nose/ Eye Tearin= Nasal Congestion GI Upset > 30mins: 2= Nausea/Diarrhea Tremor Observation of Outstretched Hands: 1= Tremor [place], Not Seen Yawning Observation: 0= None Anxiety or Irritability: 1=Feels Anxious/Irritable Goose Flesh Skin: 0=Smooth Skin COWS Score: 10 BHS Progress Note (SOAP) Subjective: interrupted sleep, sweats, diarrhea Objective: 09/03/16 11:01 Vital Signs Temperature 97.9 F 09/03/16 10:00 Pulse Rate 58 L 09/03/16 10:00 Respiratory Rate 18 09/03/16 10:00 Blood Pressure 105/57 09/03/16 10:00 O2 Sat by Pulse Oximetry (%) Laboratory Tests 09/01/16 09/01/16 09/01/16 08:30 15:00 15:00 WBC 6.1 D RBC 4.42 Hgb 12.7 Hct 38.4 MCV 86.9 MCH 28.8 MCHC 33.1 RDW 13.8 Plt Count 210 D MPV 8.1 Sodium 141 Potassium 3.6 Chloride 106 Carbon Dioxide 29 Anion Gap 6 L BUN 20 H Creatinine 0.6 L D Creat Clearance w eGFR > 60 Random Glucose 85 Calcium 9.2 Total Bilirubin 0.6 AST 31 D ALT 44 D Alkaline Phosphatase 79 Total Protein 7.8 Albumin 4.1 D Urine Color Urine Appearance Urine pH Ur Specific [place] Urine Protein Urine Glucose (UA) Urine Ketones Urine Blood Urine Nitrite Urine Bilirubin Urine Urobilinogen Ur Leukocyte Esterase RPR Titer HIV 1&2 Antibody Screen Negative HIV P24 Antigen Negative 09/01/16 09/01/16 15:00 15:50 WBC RBC Hgb Hct MCV MCH MCHC RDW Plt Count MPV Sodium Potassium Chloride Carbon Dioxide Anion Gap BUN Creatinine Creat Clearance w eGFR Random Glucose Calcium Total Bilirubin AST ALT Alkaline Phosphatase Total Protein Albumin Urine Color Yellow Urine Appearance Clear Urine pH 5.0 Ur Specific [place] >= 1.030 H Urine Protein Negative Urine Glucose (UA) Negative Urine Ketones Negative Urine Blood Negative Urine Nitrite Negative Urine Bilirubin Negative Urine Urobilinogen Negative Ur Leukocyte Esterase Negative RPR Titer Nonreactive HIV 1&2 Antibody Screen HIV P24 Antigen pt aox3 in nad ambulating Assessment: 09/03/16 11:02 withdrawal sx's Plan: cont. detox increase fluids imodium prn
[2016-09-03] MEDS: NICOTINE POLACRILEX 2 MG GUM BUC PRN ×2 (18:21→22:05)
[2016-09-03] MEDS: diphenhydrAMINE HCL 50 MG CAPSULE PO PRN (22:05)
[2016-09-03] MEDS: THIAMINE HCL 100 MG TABLET (FP) PO SCH (22:06)
[2016-09-04] MEDS ORDERED: METHADONE HCL 5 MG TABLET (FOR DETOX USE ONLY) PO ONE (10:00)
[2016-09-04] MEDS: NICOTINE 14 MG/24 HOURS TOPICAL PATCH TD SCH (10:16)
[2016-09-04] MEDS: PRENATAL VITAMINS W/ FOLIC ACID TABLET (FP) PO SCH (10:16)
[2016-09-04] MEDS: TOLNAFTATE 1% CREAM 15 GM TUBE TP SCH ×2 (10:16→22:11)
[2016-09-04] MEDS: diazePAM 5 MG TABLET PO PRN (10:16)
--- NOTE | 2016-09-04 12:42 | PN ---
BHS Progress Note (SOAP) Subjective: alert,irritable,anxious,interrupted sleep,pain in the body Objective: 09/04/16 12:41 Vital Signs Temperature 97.2 F L 09/04/16 09:50 Pulse Rate 69 09/04/16 09:50 Respiratory Rate 18 09/04/16 09:50 Blood Pressure 111/61 09/04/16 09:50 O2 Sat by Pulse Oximetry (%) Assessment: 09/04/16 12:41 withdrawal symptom Plan: continue detox
[2016-09-04] MEDS: NICOTINE POLACRILEX 2 MG GUM BUC PRN ×3 (14:22→22:11)
[2016-09-04] MEDS: hydrOXYzine PAMOATE 25 MG CAPSULE (FP) PO PRN ×2 (14:22→22:11)
[2016-09-04] MEDS: THIAMINE HCL 100 MG TABLET (FP) PO SCH (22:10)
[2016-09-05] MEDS ORDERED: METHADONE HCL 10 MG TABLET (FOR DETOX USE ONLY) PO ONE (10:00)
[2016-09-05] MEDS: PRENATAL VITAMINS W/ FOLIC ACID TABLET (FP) PO SCH (10:13)
[2016-09-05] MEDS: TOLNAFTATE 1% CREAM 15 GM TUBE TP SCH ×2 (10:14→22:31)
[2016-09-05] MEDS: NICOTINE 14 MG/24 HOURS TOPICAL PATCH TD SCH (10:14)
[2016-09-05] MEDS: hydrOXYzine PAMOATE 25 MG CAPSULE (FP) PO PRN ×2 (10:14→13:58)
--- NOTE | 2016-09-05 11:09 | PN ---
BHS Progress Note (SOAP) Subjective: ALERT,IRRITABLE,ANXIOUS,INTERRUPTED SLEEP,PAIN IN THE BODY Objective: 09/05/16 11:08 Vital Signs Temperature 98.2 F 09/05/16 10:00 Pulse Rate 76 09/05/16 10:00 Respiratory Rate 18 09/05/16 10:00 Blood Pressure 115/72 09/05/16 10:00 O2 Sat by Pulse Oximetry (%) Assessment: 09/05/16 11:09 WITHDRAWAL SYMPTOM Plan: CONTINUE DETOX,DISCHARGE IN AM
[2016-09-05] MEDS: diphenhydrAMINE HCL 50 MG CAPSULE PO PRN (22:32)
[2016-09-05] MEDS: NICOTINE POLACRILEX 2 MG GUM BUC PRN (22:32)
[2016-09-05] MEDS: THIAMINE HCL 100 MG TABLET (FP) PO SCH (22:32)
[2016-09-06] MEDS ORDERED: METHADONE HCL 5 MG TABLET (FOR DETOX USE ONLY) PO ONE (06:00)
--- NOTE | 2016-09-06 08:46 | DS ---
[facility] Detox Discharge Summary Admission Date: 09/01/16 Discharge Date: 09/06/16 - History Present History: Alcohol Dependence, Cannabis Dependence, Opioid Dependence, Sedative Dependence, Pcp Dependence - Physical Exam Results Vital Signs: Vital Signs Temperature 96.9 F L 09/06/16 06:15 Pulse Rate 51 L 09/06/16 06:15 Respiratory Rate 16 09/06/16 06:15 Blood Pressure 105/60 09/06/16 06:15 O2 Sat by Pulse Oximetry (%) - Treatment Hospital Course: Detox Protocol Followed, Detoxed Safely, Responded well, Discharged Condition Good, Rehab Referral Accepted - Medication Discharge Medications: Ambulatory Orders NK [No Known Home Medication] 12/16/14 - Diagnosis (1) Cannabis dependence, uncomplicated Current Visit: Yes Status: Chronic (2) Nicotine dependence Current Visit: Yes Status: Chronic Qualifiers: Nicotine product type: cigarettes Substance use status: uncomplicated Qualified Code(s): F17.210 - Nicotine dependence, cigarettes, uncomplicated (3) Opioid dependence with withdrawal Current Visit: Yes Status: Chronic (4) PCP dependence Current Visit: Yes Status: Chronic (5) Substance induced mood disorder Current Visit: Yes Status: Acute (6) Abrasion of skin Current Visit: No Status: Resolved (7) Anxiety and depression Current Visit: No Status: Acute (8) Weight loss Current Visit: No Status: Acute (9) Alcohol dependence Current Visit: No Status: Chronic (10) Chronic low back pain Current Visit: No Status: Chronic (11) Klonopin use disorder, moderate, dependence Current Visit: No Status: Chronic (12) Depression (emotion) Current Visit: No Status: Suspected Qualifiers: Depression Type: dysthymia Qualified Code(s): F34.1 - Dysthymic disorder - AMA Did Patient Leave Against Medical Advice: No
[2016-09-06 10:04] VITALS: BP 105/58; PULSE 71; TEMP 97.1
== END 2016-09-06 09:57 | disposition home or self-care (01) | DRG 773 ==
LOC: YASAS 09:10 → Y6N 12:55
PROVIDERS: ADMIT Internal Medicine Addiction Medicine; ATTEND Internal Medicine Addiction Medicine
PROC: HZ2ZZZZ Detoxification Services for Substance Abuse Treatment (ICD-10-PCS; principal; 2016-09-01)
DX: F11.23 Opioid dependence with withdrawal (principal); F16.20 Hallucinogen dependence, uncomplicated; F12.20 Cannabis dependence, uncomplicated; F17.210 Nicotine dependence, cigarettes, uncomplicated; F19.24 Other psychoactive substance dependence with psychoactive substance-induced mood disorder; F41.8 Other specified anxiety disorders; F34.1 Dysthymic disorder; M54.5 Low back pain; G89.29 Other chronic pain; B18.2 Chronic viral hepatitis C; Z87.898 Personal history of other specified conditions
CPT/HCPCS: 36415; 80053; 81003; 85027; 86593; 87389; 93005; 93010

== ENCOUNTER 2016-10-09 11:09 | Inpatient (IN) | payer OTHER ==
[2016-10-09 11:46] VITALS: BMI 23.6
--- NOTE | 2016-10-09 13:11 | HP ---
COWS - Scale Resting Pulse: 1= [place] 81-100 Sweatin= Chills/Flushing Restless Observation: 1= Difficult to Sit Still Pupil Size: 0= Normal to Room Light Bone or Joint Aches: 2= Severe Diffuse Aches Runny Nose/ Eye Tearin= Nasal Congestion GI Upset > 30mins: 1= Stomach Cramp Tremor Observation: 1= Tremor [place], Not Seen Yawning Observation: 1= 1-2x During Session Anxiety or Irritability: 1=Feels Anxious/Irritable Goose Flesh Skin: 0=Smooth Skin COWS Score: 10 Admission ROS BHS - HPI Chief Complaint: I want to stop - I want detox Allergies/Adverse Reactions: Allergies Allergy/AdvReac Type Severity Reaction Status Date / Time No Known Allergies Allergy Verified 10/09/16 13:21 History of Present Illness: 46 yo gentleman here for detox from heroin - last here for detox August 2016 - one of multiple admissions - tried methadone program but came off it - no seizures. Exam Limitations: Clinical Condition - Ebola screening Have you traveled outside of the country in the last 21 days: No Have you had contact with anyone from an Ebola affected area: No Have you been sick,other than usual withdrawal symptoms: No Do you have a fever: No - Review of Systems Constitutional: Loss of Appetite, Malaise, Changes in sleep, Weakness EENT: reports: Blurred Vision, Nose Congestion Respiratory: reports: No Symptoms reported Cardiac: reports: No Symptoms Reported GI: reports: Poor Appetite, Indigestion : reports: No Symptoms Reported Musculoskeletal: reports: Muscle Pain Integumentary: reports: Bruising, Other (knuckles, elbows scraped) Neuro: reports: Headache Endocrine: reports: No Symptoms Reported Hematology: reports: No Symptoms Reported Psychiatric: reports: Mood/Affect Appropiate, Orientated x3, Anxious Other Systems: Reviewed and Negative Patient History - Patient Medical History Hx Anemia: No Hx Asthma: No Hx Chronic Obstructive Pulmonary Disease (COPD): No Hx Cancer: No Hx Cardiac Disorders: No Hx Congestive Heart Failure: No Hx Hypertension: No Hx Hypercholesterolemia: No Hx Pacemaker: No HX Cerebrovascular Accident: No Hx Seizures: No Hx Dementia: No Hx Diabetes: No Hx Gastrointestinal Disorders: No Hx Liver Disease: No Hx Genitourinary Disorders: No Hx Sexually Transmitted Disorders: No Hx Renal Disease (ESRD): No Hx Thyroid Disease: No Hx Human Immunodeficiency Virus (HIV): No Hx Hepatitis C: Yes (diagnosed 2006 - no treatment) Hx Depression: No Hx Suicide Attempt: No (DENIES) Hx Bipolar Disorder: No Hx Schizophrenia: No - Patient Surgical History Past Surgical History: No Hx Neurologic Surgery: No Hx Cataract Extraction: No Hx Cardiac Surgery: No Hx Lung Surgery: No Hx Breast Surgery: No Hx Breast Biopsy: No Hx Abdominal Surgery: No Hx Appendectomy: No Hx Cholecystectomy: No Hx Genitourinary Surgery: No Hx Section: No Hx Orthopedic Surgery: No Hx Hysterectomy: No Anesthesia Reaction: No - PPD History Previous Implant?: Yes Documented Results: Positive w/o proof Date: 07/31/18 (cxr neg) PPD to be Administered?: No - Reproductive History Patient is a Female of Child Bearing Age (11 -55 yrs old): No (male) - Smoking Cessation Smoking history: Current every day smoker Have you smoked in the past 12 months: Yes Aproximately how many cigarettes per day: 10 If you are a former smoker, when did you quit?: 01/12/12 Cigars Per Day: 0 Hx Chewing Tobacco Use: No Initiated information on smoking cessation: Yes 'Breaking Loose' booklet given: 10/09/16 (give on floor) - Substance & Tx. History Hx Alcohol Use: No Hx Substance Use: Yes Substance Use Type: Heroin Hx Substance Use Treatment: Yes (detox, [facility] once, rehab) - Substances Abused PCP Route: Inhalation Frequency: Daily Amount used: 2 bags Age of first use: 18 Date of Last Use: 10/08/16 Heroin Route: Injection Frequency: Daily Amount used: 3 bags Age of first use: 17 Date of Last Use: 10/08/16 Family Disease History - Family Disease History Family Disease History: Diabetes: Father (living, ), Mother (alive), Other: Father, Brother (one, living, bipolar) Admission Physical Exam BHS - Vital Signs Vital Signs: Vital Signs - 24 hr 10/09/16 11:42 Temperature 96.9 F L Pulse Rate 83 Respiratory 18 Rate Blood Pressure 145/90 - Physical General Appearance: Yes: Nourished, Appropriately Dressed, Mild Distress, Anxious HEENTM: Yes: Hearing grossly Normal, Normocephalic, Normal Voice, Pharynx Normal Respiratory: Yes: Normal Breath Sounds, No Respiratory Distress Neck: Yes: No masses,lesions,Nodules Breast: Yes: Breast Exam Deferred Cardiology: Yes: Regular Rhythm, Regular Rate Abdominal: Yes: Flat, Soft Genitourinary: Yes: Within Normal Limits Back: Yes: Normal Inspection Musculoskeletal: Yes: full range of Motion, Gait Steady, Muscle Pain Extremities: Yes: Normal Inspection, Normal Range of Motion Neurological: Yes: Fully Oriented, Alert, Normal Mood/Affect, Normal Response Integumentary: Yes: Normal Color, Warm, Track [place], Other (abrasions on knuckles both hands, both elbows (states due to bad drug reaction made him 'go crazy' )) - Diagnostic (1) Opioid dependence with withdrawal Current Visit: Yes Status: Chronic (2) PCP dependence Current Visit: Yes Status: Chronic (3) Nicotine dependence Current Visit: Yes Status: Chronic Qualifiers: Nicotine product type: cigarettes Substance use status: in withdrawal Qualified Code(s): F17.213 - Nicotine dependence, cigarettes, with withdrawal Cleared for Admission [facility] - Detox or Rehab [facility] Level of Care: Medically Managed Detox Regimen/Protocol: Methadone [facility] Breath Alcohol Content Breath Alcohol Content: 0 Urine Drug Screen - Results Drug Screen Negative: No Urine Drug Screen Results: OPI-Opiates, PCP-Phencyclidine
[2016-10-09] MEDS ORDERED: guaiFENesin/D-METHORPHAN HB 10 ML UNIT-DOSE CUPS PO PRN (13:20)
[2016-10-09] MEDS ORDERED: MENTHOL/PHENOL 1 EACH UD MM PRN (13:20)
[2016-10-09] MEDS ORDERED: MAG HYDROX/AL HYDROX/SIMETH 30 ML UNIT-DOSE CUP PO PRN (13:20)
[2016-10-09] MEDS ORDERED: IBUPROFEN 400 MG TABLET (FP) PO PRN (13:20)
[2016-10-09] MEDS ORDERED: MAGNESIUM CITRATE 300 ML BOTTLE PO PRN (13:20)
[2016-10-09] MEDS ORDERED: LOPERAMIDE HCL 2 MG CAPSULE PO PRN (13:20)
[2016-10-09] MEDS ORDERED: ACETAMINOPHEN 325 MG TABLET (FP) PO PRN (13:20)
[2016-10-09] MEDS ORDERED: P-EPHED 60MG/TRIPROLIDI 2.5MG TABLET PO PRN (13:20)
[2016-10-09] MEDS ORDERED: METHADONE HCL 10 MG TABLET (FOR DETOX USE ONLY) PO ONE ×2 (14:00→23:00)
[2016-10-09] MEDS: diazePAM 5 MG TABLET PO PRN ×3 (14:46→23:05)
[2016-10-09 18:51] LABS: URINE APPEARANCE CLEAR; URINE BILIRUBIN NEGATIVE (NEGATIVE); URINE BLOOD NEGATIVE (NEGATIVE); URINE COLOR LTYELLOW; URINE GLUCOSE (UA) NEGATIVE (NEGATIVE); URINE KETONE NEGATIVE (NEGATIVE); URINE LEUK ESTERASE NEGATIVE (NEGATIVE); URINE NITRITE NEGATIVE (NEGATIVE); URINE PROTEIN NEGATIVE (NEGATIVE); URINE UROBILINOGEN NEGATIVE mg/dL (0.2-1.0)
[2016-10-09] MEDS: THIAMINE HCL 100 MG TABLET (FP) PO SCH (22:28)
[2016-10-09] MEDS: diphenhydrAMINE HCL 50 MG CAPSULE PO PRN (22:28)
[2016-10-09] MEDS: NICOTINE POLACRILEX 4 MG GUM BUC PRN (22:29)
[2016-10-10] MEDS: diazePAM 5 MG TABLET PO PRN ×4 (05:42→21:03)
[2016-10-10] MEDS: NICOTINE POLACRILEX 4 MG GUM BUC PRN ×4 (08:57→22:21)
[2016-10-10 09:56] LABS: MCH 28.8 pg (25.7-33.7); MCHC 33.1 g/dl (32.0-35.9); MEAN CELL VOLUME 87.2 fl (80-96); PLATELET COUNT 173 K/MM3 (134-434); RDW 14.6 % (11.9-15.9); WHITE BLOOD COUNT 4.4 K/mm3 (4.0-10.0)
[2016-10-10] MEDS ORDERED: METHADONE HCL 10 MG TABLET (FOR DETOX USE ONLY) PO ONE (10:00)
[2016-10-10 10:07] LABS: ALBUMIN 3.2 g/dl (3.4-5.0); ALK PHOS 78 U/L (45-117); ANION GAP 5 (8-16); BILIRUBIN,TOTAL 0.5 mg/dL (0.2-1.0); CALCIUM 8.5 mg/dL (8.5-10.1); CO2 29 mmol/L (21-32); CREATININE 0.8 mg/dL (0.7-1.3); GLUCOSE,RANDOM 82 mg/dL (74-106); SGOT/AST 50 U/L (15-37); SGPT/ALT 46 U/L (12-78); TOT PROT 6.5 g/dl (6.4-8.2)
[2016-10-10] MEDS: PRENATAL VITAMINS W/ FOLIC ACID TABLET (FP) PO SCH (10:23)
--- NOTE | 2016-10-10 17:39 | PN ---
S COWS - Scale Resting Pulse: 1= [place] 81-100 Sweatin= Chills/Flushing Restless Observation: 3= Extraneous Movement Pupil Size: 0= Normal to Room Light Bone or Joint Aches: 2= Severe Diffuse Aches Runny Nose/ Eye Tearin= Nasal Congestion GI Upset > 30mins: 3= Vomiting/Diarrhea Tremor Observation of Outstretched Hands: 2= Slight Tremor Visible Yawning Observation: 1= 1-2x During Session Anxiety or Irritability: 2=Irritable/Anxious Goose Flesh Skin: 0=Smooth Skin COWS Score: 16 S Progress Note (SOAP) Subjective: Tremor, chills, diarrhea, nausea, anxious, restless Objective: 10/10/16 17:38 Last Vital Signs Temp Pulse Resp BP Pulse Ox 97 F L 83 18 131/88 10/10/16 14:14 10/10/16 14:14 10/10/16 14:14 10/10/16 14:14 Laboratory Tests 10/09/16 10/10/16 10/10/16 14:59 07:50 07:50 WBC 4.4 RBC 4.64 Hgb 13.4 Hct 40.5 MCV 87.2 MCH 28.8 MCHC 33.1 RDW 14.6 Plt Count 173 MPV 8.0 Sodium 142 Potassium 4.0 Chloride 108 H Carbon Dioxide 29 Anion Gap 5 L BUN 17 Creatinine 0.8 D Creat Clearance w eGFR > 60 Random Glucose 82 Calcium 8.5 Total Bilirubin 0.5 AST 50 H D ALT 46 Alkaline Phosphatase 78 Total Protein 6.5 Albumin 3.2 L D Urine Color [place] Urine Appearance Clear Urine pH 6.0 Ur Specific [place] 1.015 Urine Protein Negative Urine Glucose (UA) Negative Urine Ketones Negative Urine Blood Negative Urine Nitrite Negative Urine Bilirubin Negative Urine Urobilinogen Negative Ur Leukocyte Esterase Negative RPR Titer 10/10/16 07:50 WBC RBC Hgb Hct MCV MCH MCHC RDW Plt Count MPV Sodium Potassium Chloride Carbon Dioxide Anion Gap BUN Creatinine Creat Clearance w eGFR Random Glucose Calcium Total Bilirubin AST ALT Alkaline Phosphatase Total Protein Albumin Urine Color Urine Appearance Urine pH Ur Specific [place] Urine Protein Urine Glucose (UA) Urine Ketones Urine Blood Urine Nitrite Urine Bilirubin Urine Urobilinogen Ur Leukocyte Esterase RPR Titer Nonreactive Labs noted Assessment: 10/10/16 17:38 Withdrawal symptoms Plan: Continue detox Encouraged to drink lots of water (water pitcher ordered)
[2016-10-10] MEDS: BACITRACIN 0.9 GM PACKET TP SCH (21:04)
[2016-10-10] MEDS ORDERED: BACITRACIN 15 GM TUBE TOPICAL OINTMENT TP SCH (22:00)
--- NOTE | 2016-10-10 22:07 | EKG ---
Test Reason : Blood Pressure : / mmHG Vent. Rate : 067 BPM Atrial Rate : 067 BPM P-R Int : 148 ms QRS Dur : 084 ms QT Int : 396 ms P-R-T Axes : 056 055 018 degrees QTc Int : 418 ms NORMAL SINUS RHYTHM NORMAL ECG WHEN COMPARED WITH ECG OF 01-SEP-2016 14:47, NO SIGNIFICANT CHANGE WAS FOUND Confirmed by ROBERT HERNANDEZ MD ([id number]) on 10/10/2016 10:07:16 PM Referred By: Confirmed By:ROBERT HERNANDEZ MD
[2016-10-10] MEDS: THIAMINE HCL 100 MG TABLET (FP) PO SCH (22:19)
[2016-10-10] MEDS: MICONAZOLE NITRATE 28 GM TUBE TP SCH (22:20)
[2016-10-10] MEDS: diphenhydrAMINE HCL 50 MG CAPSULE PO PRN (22:23)
--- NOTE | 2016-10-11 09:36 | PN ---
S COWS - Scale Resting Pulse: 1= [place] 81-100 Sweatin= Chills/Flushing Restless Observation: 1= Difficult to Sit Still Pupil Size: 1= Pupils >than Normal Bone or Joint Aches: 1= Mild Discomfort Runny Nose/ Eye Tearin= Nasal Congestion GI Upset > 30mins: 2= Nausea/Diarrhea Tremor Observation of Outstretched Hands: 1= Tremor Emmons, Not Seen Yawning Observation: 1= 1-2x During Session Anxiety or Irritability: 2=Irritable/Anxious Goose Flesh Skin: 3=Piloerection COWS Score: 15 S Progress Note (SOAP) Subjective: nausea, sweats, interrupted sleep, anxiety, tremors Objective: 10/11/16 09:35 Vital Signs - 8 hr 10/11/16 10/11/16 10/11/16 04:28 06:13 09:15 Temperature 96.5 F L Pulse Rate 71 Respiratory 18 18 18 Rate Blood Pressure 119/78 Laboratory Tests 10/09/16 10/10/16 10/10/16 14:59 07:50 07:50 WBC 4.4 RBC 4.64 Hgb 13.4 Hct 40.5 MCV 87.2 MCH 28.8 MCHC 33.1 RDW 14.6 Plt Count 173 MPV 8.0 Sodium 142 Potassium 4.0 Chloride 108 H Carbon Dioxide 29 Anion Gap 5 L BUN 17 Creatinine 0.8 D Creat Clearance w eGFR > 60 Random Glucose 82 Calcium 8.5 Total Bilirubin 0.5 AST 50 H D ALT 46 Alkaline Phosphatase 78 Total Protein 6.5 Albumin 3.2 L D Urine Color Ltyellow Urine Appearance Clear Urine pH 6.0 Ur Specific [place] 1.015 Urine Protein Negative Urine Glucose (UA) Negative Urine Ketones Negative Urine Blood Negative Urine Nitrite Negative Urine Bilirubin Negative Urine Urobilinogen Negative Ur Leukocyte Esterase Negative RPR Titer 10/10/16 07:50 WBC RBC Hgb Hct MCV MCH MCHC RDW Plt Count MPV Sodium Potassium Chloride Carbon Dioxide Anion Gap BUN Creatinine Creat Clearance w eGFR Random Glucose Calcium Total Bilirubin AST ALT Alkaline Phosphatase Total Protein Albumin Urine Color Urine Appearance Urine pH Ur Specific [place] Urine Protein Urine Glucose (UA) Urine Ketones Urine Blood Urine Nitrite Urine Bilirubin Urine Urobilinogen Ur Leukocyte Esterase RPR Titer Nonreactive labs noted Assessment: 10/11/16 09:35 withdrawal sx, hypoalbuminemia 2/2 lamnutirion from substance use/liver disease? Plan: cont detox, ensure plus, fluids, encoruage ambualtion.
[2016-10-11] MEDS ORDERED: METHADONE HCL 5 MG TABLET (FOR DETOX USE ONLY) PO ONE (10:00)
[2016-10-11] MEDS: PRENATAL VITAMINS W/ FOLIC ACID TABLET (FP) PO SCH (10:46)
[2016-10-11] MEDS: BACITRACIN 0.9 GM PACKET TP SCH ×2 (10:47→22:34)
[2016-10-11] MEDS: MICONAZOLE NITRATE 28 GM TUBE TP SCH ×2 (10:47→22:34)
[2016-10-11] MEDS: MAGNESIUM HYDROX 2400MG/30ML ORAL SUSPENSION 30 ML CUP PO PRN (10:49)
[2016-10-11] MEDS: diazePAM 5 MG TABLET PO PRN ×4 (10:50→22:36)
[2016-10-11] MEDS: NICOTINE POLACRILEX 4 MG GUM BUC PRN ×3 (10:52→22:37)
[2016-10-11] MEDS: hydrOXYzine PAMOATE 50 MG CAPSULE (FP) PO PRN (17:26)
[2016-10-11] MEDS: THIAMINE HCL 100 MG TABLET (FP) PO SCH (22:34)
[2016-10-11] MEDS: diphenhydrAMINE HCL 50 MG CAPSULE PO PRN (22:46)
[2016-10-12] MEDS ORDERED: METHADONE HCL 5 MG TABLET (FOR DETOX USE ONLY) PO ONE (10:00)
[2016-10-12] MEDS: BACITRACIN 0.9 GM PACKET TP SCH ×2 (10:29→22:24)
[2016-10-12] MEDS: diazePAM 5 MG TABLET PO PRN (10:29)
[2016-10-12] MEDS: PRENATAL VITAMINS W/ FOLIC ACID TABLET (FP) PO SCH (10:29)
[2016-10-12] MEDS: MICONAZOLE NITRATE 28 GM TUBE TP SCH ×2 (10:30→22:24)
[2016-10-12] MEDS: NICOTINE POLACRILEX 4 MG GUM BUC PRN (10:33)
--- NOTE | 2016-10-12 11:04 | PN ---
[facility] Progress Note (SOAP) Subjective: ANXIETY,IRRITABILITY,SWEATS,FATIGUE. Objective: 10/12/16 11:03 Vital Signs Temperature 96.3 F L 10/12/16 09:30 Pulse Rate 80 10/12/16 09:30 Respiratory Rate 18 10/12/16 09:30 Blood Pressure 107/64 10/12/16 09:30 O2 Sat by Pulse Oximetry (%) Laboratory Last Values WBC 4.4 K/mm3 (4.0-10.0) 10/10/16 07:50 RBC 4.64 M/mm3 (4.00-5.60) 10/10/16 07:50 Hgb 13.4 GM/dL (11.7-16.9) 10/10/16 07:50 Hct 40.5 % (35.4-49) 10/10/16 07:50 MCV 87.2 fl (80-96) 10/10/16 07:50 MCH 28.8 pg (25.7-33.7) 10/10/16 07:50 MCHC 33.1 g/dl (32.0-35.9) 10/10/16 07:50 RDW 14.6 % (11.9-15.9) 10/10/16 07:50 Plt Count 173 K/MM3 (134-434) 10/10/16 07:50 MPV 8.0 fl (7.5-11.1) 10/10/16 07:50 Sodium 142 mmol/L (136-145) 10/10/16 07:50 Potassium 4.0 mmol/L (3.5-5.1) 10/10/16 07:50 Chloride 108 mmol/L (98-107) H 10/10/16 07:50 Carbon Dioxide 29 mmol/L (21-32) 10/10/16 07:50 Anion Gap 5 (8-16) L 10/10/16 07:50 BUN 17 mg/dL (7-18) 10/10/16 07:50 Creatinine 0.8 mg/dL (0.7-1.3) D 10/10/16 07:50 Creat Clearance w eGFR > 60 (>60) 10/10/16 07:50 Random Glucose 82 mg/dL (74-106) 10/10/16 07:50 Calcium 8.5 mg/dL (8.5-10.1) 10/10/16 07:50 Total Bilirubin 0.5 mg/dL (0.2-1.0) 10/10/16 07:50 AST 50 U/L (15-37) H D 10/10/16 07:50 ALT 46 U/L (12-78) 10/10/16 07:50 Alkaline Phosphatase 78 U/L (45-117) 10/10/16 07:50 Total Protein 6.5 g/dl (6.4-8.2) 10/10/16 07:50 Albumin 3.2 g/dl (3.4-5.0) L D 10/10/16 07:50 Urine Color Ltyellow 10/09/16 14:59 Urine Appearance Clear 10/09/16 14:59 Urine pH 6.0 (5.0-8.0) 10/09/16 14:59 Ur Specific [place] 1.015 (1.005-1.025) 10/09/16 14:59 Urine Protein Negative (NEGATIVE) 10/09/16 14:59 Urine Glucose (UA) Negative (NEGATIVE) 10/09/16 14:59 Urine Ketones Negative (NEGATIVE) 10/09/16 14:59 Urine Blood Negative (NEGATIVE) 10/09/16 14:59 Urine Nitrite Negative (NEGATIVE) 10/09/16 14:59 Urine Bilirubin Negative (NEGATIVE) 10/09/16 14:59 Urine Urobilinogen Negative mg/dL (0.2-1.0) 10/09/16 14:59 Ur Leukocyte Esterase Negative (NEGATIVE) 10/09/16 14:59 RPR Titer Nonreactive (NONREACTIVE) 10/10/16 07:50 Assessment: 10/12/16 11:04 WITHDRAWAL SX Plan: CONTINUE DETOX
[2016-10-12] MEDS: THIAMINE HCL 100 MG TABLET (FP) PO SCH (22:24)
[2016-10-12] MEDS: diphenhydrAMINE HCL 50 MG CAPSULE PO PRN (22:25)
[2016-10-13] MEDS: hydrOXYzine PAMOATE 50 MG CAPSULE (FP) PO PRN ×4 (06:06→22:37)
[2016-10-13] MEDS: NICOTINE POLACRILEX 4 MG GUM BUC PRN ×4 (06:07→22:38)
[2016-10-13] MEDS ORDERED: METHADONE HCL 10 MG TABLET (FOR DETOX USE ONLY) PO ONE (10:00)
[2016-10-13] MEDS: MICONAZOLE NITRATE 28 GM TUBE TP SCH ×2 (10:31→22:37)
[2016-10-13] MEDS: BACITRACIN 0.9 GM PACKET TP SCH ×2 (10:31→22:37)
[2016-10-13] MEDS: PRENATAL VITAMINS W/ FOLIC ACID TABLET (FP) PO SCH (10:31)
--- NOTE | 2016-10-13 11:52 | PN ---
BHS Progress Note (SOAP) Subjective: DECREASED SWEATS, ANXIETY, FATIGUE. Objective: 10/13/16 11:52 Vital Signs Temperature 99.4 F 10/13/16 10:13 Pulse Rate 75 10/13/16 10:13 Respiratory Rate 18 10/13/16 10:13 Blood Pressure 124/78 10/13/16 10:13 O2 Sat by Pulse Oximetry (%) Laboratory Last Values WBC 4.4 K/mm3 (4.0-10.0) 10/10/16 07:50 RBC 4.64 M/mm3 (4.00-5.60) 10/10/16 07:50 Hgb 13.4 GM/dL (11.7-16.9) 10/10/16 07:50 Hct 40.5 % (35.4-49) 10/10/16 07:50 MCV 87.2 fl (80-96) 10/10/16 07:50 MCH 28.8 pg (25.7-33.7) 10/10/16 07:50 MCHC 33.1 g/dl (32.0-35.9) 10/10/16 07:50 RDW 14.6 % (11.9-15.9) 10/10/16 07:50 Plt Count 173 K/MM3 (134-434) 10/10/16 07:50 MPV 8.0 fl (7.5-11.1) 10/10/16 07:50 Sodium 142 mmol/L (136-145) 10/10/16 07:50 Potassium 4.0 mmol/L (3.5-5.1) 10/10/16 07:50 Chloride 108 mmol/L (98-107) H 10/10/16 07:50 Carbon Dioxide 29 mmol/L (21-32) 10/10/16 07:50 Anion Gap 5 (8-16) L 10/10/16 07:50 BUN 17 mg/dL (7-18) 10/10/16 07:50 Creatinine 0.8 mg/dL (0.7-1.3) D 10/10/16 07:50 Creat Clearance w eGFR > 60 (>60) 10/10/16 07:50 Random Glucose 82 mg/dL (74-106) 10/10/16 07:50 Calcium 8.5 mg/dL (8.5-10.1) 10/10/16 07:50 Total Bilirubin 0.5 mg/dL (0.2-1.0) 10/10/16 07:50 AST 50 U/L (15-37) H D 10/10/16 07:50 ALT 46 U/L (12-78) 10/10/16 07:50 Alkaline Phosphatase 78 U/L (45-117) 10/10/16 07:50 Total Protein 6.5 g/dl (6.4-8.2) 10/10/16 07:50 Albumin 3.2 g/dl (3.4-5.0) L D 10/10/16 07:50 Urine Color Ltyellow 10/09/16 14:59 Urine Appearance Clear 10/09/16 14:59 Urine pH 6.0 (5.0-8.0) 10/09/16 14:59 Ur Specific [place] 1.015 (1.005-1.025) 10/09/16 14:59 Urine Protein Negative (NEGATIVE) 10/09/16 14:59 Urine Glucose (UA) Negative (NEGATIVE) 10/09/16 14:59 Urine Ketones Negative (NEGATIVE) 10/09/16 14:59 Urine Blood Negative (NEGATIVE) 10/09/16 14:59 Urine Nitrite Negative (NEGATIVE) 10/09/16 14:59 Urine Bilirubin Negative (NEGATIVE) 10/09/16 14:59 Urine Urobilinogen Negative mg/dL (0.2-1.0) 10/09/16 14:59 Ur Leukocyte Esterase Negative (NEGATIVE) 10/09/16 14:59 RPR Titer Nonreactive (NONREACTIVE) 10/10/16 07:50 Assessment: 10/13/16 11:53 WITHDRAWAL SX Plan: CONTINUE DETOX
[2016-10-13] MEDS: MAGNESIUM HYDROX 2400MG/30ML ORAL SUSPENSION 30 ML CUP PO PRN (13:37)
[2016-10-13] MEDS: THIAMINE HCL 100 MG TABLET (FP) PO SCH (22:37)
[2016-10-13] MEDS: diphenhydrAMINE HCL 50 MG CAPSULE PO PRN (22:39)
[2016-10-14] MEDS ORDERED: METHADONE HCL 5 MG TABLET (FOR DETOX USE ONLY) PO ONE (06:00)
[2016-10-14] MEDS: hydrOXYzine PAMOATE 50 MG CAPSULE (FP) PO PRN ×2 (06:12→10:33)
[2016-10-14] MEDS: NICOTINE POLACRILEX 4 MG GUM BUC PRN ×2 (06:14→10:32)
[2016-10-14 09:29] VITALS: BP 121/70; PULSE 73; TEMP 99.2
[2016-10-14] MEDS: PRENATAL VITAMINS W/ FOLIC ACID TABLET (FP) PO SCH (10:31)
[2016-10-14] MEDS: BACITRACIN 0.9 GM PACKET TP SCH (10:31)
[2016-10-14] MEDS: MICONAZOLE NITRATE 28 GM TUBE TP SCH (10:31)
--- NOTE | 2016-10-14 11:16 | DS ---
[facility] Detox Discharge Summary Admission Date: 10/09/16 Discharge Date: 10/14/16 - Physical Exam Results Vital Signs: Vital Signs Temperature 99.2 F 10/14/16 09:29 Pulse Rate 73 10/14/16 09:29 Respiratory Rate 18 10/14/16 09:29 Blood Pressure 121/70 10/14/16 09:29 O2 Sat by Pulse Oximetry (%) - Treatment Hospital Course: Detox Protocol Followed, Detoxed Safely, Responded well, Discharged Condition Good, Rehab Referral Accepted Patient has Accepted a Rehab Referral to: [facility] - Medication Discharge Medications: Ambulatory Orders NK [No Known Home Medication] 12/16/14 - Diagnosis (1) Opioid dependence with withdrawal Current Visit: Yes Status: Acute (2) Nicotine dependence Current Visit: Yes Status: Acute Qualifiers: Nicotine product type: cigarettes Substance use status: in withdrawal Qualified Code(s): F17.213 - Nicotine dependence, cigarettes, with withdrawal (3) PCP dependence Current Visit: Yes Status: Acute (4) Weight loss Current Visit: Yes Status: Acute (5) Chronic low back pain Current Visit: Yes Status: Chronic Qualifiers: Back pain laterality: unspecified (6) History of hepatitis C Current Visit: Yes Status: Chronic - AMA Did Patient Leave Against Medical Advice: No
--- NOTE | 2016-10-14 17:35 | HP ---
[facility] Rehab Assess/Revision - Admission History Admitted to Rehab from: [facility] Date of Admission to Rehab: 10/14/2016 - Vital signs Vital Signs: Vital Signs Period Temp Pulse Resp BP Sys/Gayle Pulse Ox Last 24 Hr 97.2 F-99.2 F 65-86 16-18 104-124/66-74 - Findings Detox History & Physical reviewed: Yes Concur with findings: Yes Comments/Additional Findings: PATIENT'S MEDICAL / PRESCRIPTION HISTORY REVIEWED PRIOR TO PATIERNT BEING DISCHARGED FROM DETOX UNIT AND SUBSEQUENTLY TAKEN TO REHAB UNIT. PATIENT DISCHARGED FROM DETOX UNIT IN STABLE MEDICAL CONDITION.
== END 2016-10-14 11:34 | disposition other institution (70) | DRG 773 ==
LOC: YASAS 11:09 → Y3N 13:19
PROVIDERS: ADMIT Internal Medicine Addiction Medicine; ATTEND Internal Medicine Addiction Medicine
PROC: HZ2ZZZZ Detoxification Services for Substance Abuse Treatment (ICD-10-PCS; principal; 2016-10-09)
DX: F11.23 Opioid dependence with withdrawal (principal); F16.20 Hallucinogen dependence, uncomplicated; F17.213 Nicotine dependence, cigarettes, with withdrawal; E88.09 Other disorders of plasma-protein metabolism, not elsewhere classified; G89.29 Other chronic pain; B18.2 Chronic viral hepatitis C; Z87.898 Personal history of other specified conditions
CPT/HCPCS: 36415; 80053; 81003; 85027; 86593; 93005; 93010

== ENCOUNTER 2016-10-14 11:41 | Inpatient (IN) | payer OTHER ==
[2016-10-14 12:23] VITALS: BMI 26.9
[2016-10-14] MEDS ORDERED: MAGNESIUM CITRATE 300 ML BOTTLE PO PRN (15:11)
[2016-10-14] MEDS ORDERED: P-EPHED 60MG/TRIPROLIDI 2.5MG TABLET PO PRN (15:11)
[2016-10-14] MEDS ORDERED: LOPERAMIDE HCL 2 MG CAPSULE PO PRN (15:11)
[2016-10-14] MEDS ORDERED: ACETAMINOPHEN 325 MG TABLET (FP) PO PRN (15:11)
[2016-10-14] MEDS ORDERED: MAGNESIUM HYDROX 2400MG/30ML ORAL SUSPENSION 30 ML CUP PO PRN (15:11)
[2016-10-14] MEDS ORDERED: MENTHOL/PHENOL 1 EACH UD MM PRN (15:11)
[2016-10-14] MEDS ORDERED: guaiFENesin/D-METHORPHAN HB 10 ML UNIT-DOSE CUPS PO PRN (15:11)
[2016-10-14] MEDS ORDERED: MAG HYDROX/AL HYDROX/SIMETH 30 ML UNIT-DOSE CUP PO PRN (15:11)
[2016-10-14] MEDS ORDERED: IBUPROFEN 400 MG TABLET (FP) PO PRN (15:11)
--- NOTE | 2016-10-14 16:26 | HP ---
[facility] Rehab Assess/Revision - Admission History Admitted to Rehab from: [facility] Date of Admission to Rehab: 10/14/16 - Vital signs Vital Signs: Vital Signs Period Temp Pulse Resp BP Sys/Gayle Pulse Ox Last 24 Hr 97.6 F 73 18 116/67 - Findings Detox History & Physical reviewed: Yes Concur with findings: Yes Comments/Additional Findings: transferred from detox to rehab admission as per protocol
[2016-10-14] MEDS: hydrOXYzine PAMOATE 50 MG CAPSULE (FP) PO PRN ×2 (17:31→21:35)
[2016-10-14] MEDS: NICOTINE POLACRILEX 4 MG GUM BUC PRN ×2 (17:32→20:06)
[2016-10-14] MEDS: TOLNAFTATE 1% CREAM 15 GM TUBE TP SCH (21:36)
[2016-10-14] MEDS: BACITRACIN 0.9 GM PACKET TP SCH (21:36)
[2016-10-14] MEDS: THIAMINE HCL 100 MG TABLET (FP) PO SCH (21:36)
[2016-10-15] MEDS: PRENATAL VITAMINS W/ FOLIC ACID TABLET (FP) PO SCH (10:04)
[2016-10-15] MEDS: BACITRACIN 0.9 GM PACKET TP SCH ×2 (10:05→22:20)
[2016-10-15] MEDS: TOLNAFTATE 1% CREAM 15 GM TUBE TP SCH ×2 (10:06→22:20)
[2016-10-15] MEDS: NICOTINE POLACRILEX 4 MG GUM BUC PRN ×2 (10:06→14:31)
--- NOTE | 2016-10-15 10:45 | HP ---
Psychiatrist Admission - Data Date of interview: 10/15/16 Admission source: [address] [place] [address] Identifying data: This is the first admission to [address] [place] [address] for this 46 years old H male single ,[address] [place] [address] supported by SAW. Medical History: Significant for Hep C. Psychiatric History: denies Physical/Sexual Abuse/Trauma History: denies Vital Signs: Vital Signs - 24 hr 10/14/16 10/15/16 10/15/16 12:10 03:30 07:04 Temperature 97.6 F 97.6 F Pulse Rate 73 56 L Respiratory 18 18 18 Rate Blood Pressure 116/67 123/80 Allergies/Adverse Reactions: Allergies Allergy/AdvReac Type Severity Reaction Status Date / Time No Known Allergies Allergy Verified 10/14/16 12:05 Date of last physical exam: 10/15/15 Concur with the findings of this exam: Yes - Substance Abuse/Tx History Hx Alcohol Use: Yes (socially) Hx Substance Use: Yes (heroin since 16 yo,cocaine since 16 yo and PCP) Substance Use Type: Cocaine, Heroin Hx Substance Use Treatment: Yes (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 ) - Admission Criteria Previous failed treatment: Yes Poor recovery environment: Yes Comorbidities: Yes Lacks judgement: Yes Mental Status Exam - Mental Status Exam Alert and Oriented to: Time, Place, Person Cognitive Function: Grossly Intact Patient Appearance: Unkempt Mood: Sad Affect: Labile Patient Behavior: Cooperative Speech Pattern: Clear Voice Loudness: Normal Thought Process: Goal Oriented Thought Disorder: Not Present Hallucinations: Denies Suicidal Ideation: Denies Homicidal Ideation: Denies Insight/Judgement: Fair Sleep: Fair Appetite: Good Muscle strength/Tone: Normal Gait/Station: Normal Psychiatric Findings - Problem List ([place] 1, 2,3) (1) Nicotine dependence Current Visit: Yes Status: Chronic Qualifiers: Nicotine product type: cigarettes Substance use status: in withdrawal Qualified Code(s): F17.213 - Nicotine dependence, cigarettes, with withdrawal (2) PCP dependence Current Visit: Yes Status: Chronic (3) Substance induced mood disorder Current Visit: Yes Status: Chronic (4) Chronic low back pain Current Visit: Yes Status: Chronic Qualifiers: Back pain laterality: unspecified (5) History of hepatitis C Current Visit: Yes Status: Inactive (6) Opioid dependence Current Visit: Yes Status: Chronic - Initial Treatment Plan Initial Treatment Plan: Will monitor progress.
[2016-10-15] MEDS: NICOTINE 14 MG/24 HOURS TOPICAL PATCH TD SCH (11:31)
[2016-10-15] MEDS: hydrOXYzine PAMOATE 50 MG CAPSULE (FP) PO PRN (14:30)
[2016-10-15] MEDS: THIAMINE HCL 100 MG TABLET (FP) PO SCH (22:20)
[2016-10-16] MEDS: TOLNAFTATE 1% CREAM 15 GM TUBE TP SCH ×2 (10:40→21:14)
[2016-10-16] MEDS: BACITRACIN 0.9 GM PACKET TP SCH ×2 (10:45→21:14)
[2016-10-16] MEDS: NICOTINE 14 MG/24 HOURS TOPICAL PATCH TD SCH (10:45)
[2016-10-16] MEDS: PRENATAL VITAMINS W/ FOLIC ACID TABLET (FP) PO SCH (10:45)
[2016-10-16] MEDS: diphenhydrAMINE HCL 50 MG CAPSULE PO PRN (21:13)
[2016-10-16] MEDS: THIAMINE HCL 100 MG TABLET (FP) PO SCH (21:14)
[2016-10-17] MEDS: NICOTINE 14 MG/24 HOURS TOPICAL PATCH TD SCH (09:56)
[2016-10-17] MEDS: PRENATAL VITAMINS W/ FOLIC ACID TABLET (FP) PO SCH (09:56)
[2016-10-17] MEDS: BACITRACIN 0.9 GM PACKET TP SCH ×2 (09:56→21:16)
[2016-10-17] MEDS: TOLNAFTATE 1% CREAM 15 GM TUBE TP SCH ×2 (09:57→21:16)
[2016-10-17] MEDS: THIAMINE HCL 100 MG TABLET (FP) PO SCH (21:16)
[2016-10-18] MEDS: BACITRACIN 0.9 GM PACKET TP SCH ×2 (10:03→21:09)
[2016-10-18] MEDS: NICOTINE 14 MG/24 HOURS TOPICAL PATCH TD SCH (10:03)
[2016-10-18] MEDS: TOLNAFTATE 1% CREAM 15 GM TUBE TP SCH ×2 (10:04→21:08)
[2016-10-18] MEDS: PRENATAL VITAMINS W/ FOLIC ACID TABLET (FP) PO SCH (10:04)
[2016-10-18] MEDS: hydrOXYzine PAMOATE 50 MG CAPSULE (FP) PO PRN (21:08)
[2016-10-18] MEDS: THIAMINE HCL 100 MG TABLET (FP) PO SCH (21:09)
[2016-10-18] MEDS: diphenhydrAMINE HCL 50 MG CAPSULE PO PRN (23:24)
[2016-10-19] MEDS: NICOTINE 14 MG/24 HOURS TOPICAL PATCH TD SCH (10:19)
[2016-10-19] MEDS: TOLNAFTATE 1% CREAM 15 GM TUBE TP SCH ×2 (10:19→21:56)
[2016-10-19] MEDS: BACITRACIN 0.9 GM PACKET TP SCH ×2 (10:19→21:56)
[2016-10-19] MEDS: PRENATAL VITAMINS W/ FOLIC ACID TABLET (FP) PO SCH (10:19)
[2016-10-19] MEDS: diphenhydrAMINE HCL 50 MG CAPSULE PO PRN (21:45)
[2016-10-19] MEDS: THIAMINE HCL 100 MG TABLET (FP) PO SCH (21:45)
[2016-10-20 06:55] VITALS: BP 127/80; PULSE 67; TEMP 97.2
--- NOTE | 2016-10-20 09:47 | PN ---
S Progress Note Note: Informed by nursing staff that patient walked out of the unit and said before doing so that he did not want to talk to no one. I was told that he was aggravated and said that his sleep is disturbed by staff waking him up for different reasons like for breakfast etc
== END 2016-10-20 09:20 | disposition left against medical advice (07) | DRG 770 ==
LOC: YASAS 11:41 → UNDOADMIN 11:42 → Y3W 11:42 → UNDODISIN 10-20 09:20
PROVIDERS: ADMIT Psychiatry & Neurology Psychiatry; ATTEND Psychiatry & Neurology Psychiatry
PROC: HZ42ZZZ Group Counseling for Substance Abuse Treatment, Cognitive-Behavioral (ICD-10-PCS; principal; 2016-10-14)
DX: F11.20 Opioid dependence, uncomplicated (principal); F16.20 Hallucinogen dependence, uncomplicated; F17.213 Nicotine dependence, cigarettes, with withdrawal; F19.24 Other psychoactive substance dependence with psychoactive substance-induced mood disorder; M54.5 Low back pain; G89.29 Other chronic pain; B18.2 Chronic viral hepatitis C

== ENCOUNTER 2016-12-08 01:21 | Inpatient (IN) | payer OTHER ==
--- NOTE | 2016-12-08 01:44 | HP ---
COWS - Scale Resting Pulse: 0= MD 80 or Below Sweatin= Chills/Flushing Restless Observation: 3= Extraneous Movement Pupil Size: 1= Pupils >than Normal Bone or Joint Aches: 1= Mild Discomfort Runny Nose/ Eye Tearin= Nasal Congestion GI Upset > 30mins: 1= Stomach Cramp Tremor Observation: 1= Tremor Joffre, Not Seen Yawning Observation: 1= 1-2x During Session Anxiety or Irritability: 2=Irritable/Anxious Goose Flesh Skin: 3=Piloerection COWS Score: 15 CIWA Score - CIWA Score Nausea/Vomitin-Mild Nausea/No Vomiting Muscle Tremors: 2 Anxiety: 3 Agitation: 2 Paroxysmal Sweats: 2 Orientation: 1-Uncertain about Date Tacttile Disturbances: 0-None Auditory Disturbances: 1-Very Mild Visual Disturbances: 1-Very Mild Sensitivity Headache: 1-Very Mild CIWA-Ar Total Score: 14 Admission ROS S - HPI Chief Complaint: WITHDRAWAL SYMPTOM Allergies/Adverse Reactions: Allergies Allergy/AdvReac Type Severity Reaction Status Date / Time No Known Allergies Allergy Verified 10/14/16 12:05 History of Present Illness: 46 Y.O. MAN WITH AN EXTENSIVE HISTORY OF HEROIN, PCP AND ALCOHOL DEPENDENCE IS HERE SEEKING DETOX. HE HAS HAD MULTIPLE ADMISSIONS HERE AND REPORTS A PERIOD CLEAN 1 YEAR CLEAN. Exam Limitations: No Limitations - Ebola screening Have you traveled outside of the country in the last 21 days: No Have you had contact with anyone from an Ebola affected area: No Have you been sick,other than usual withdrawal symptoms: No Do you have a fever: No - Review of Systems Constitutional: Chills, Loss of Appetite, Night Sweats, Changes in sleep EENT: reports: Blurred Vision, Double Vision, Tearing, Nose Congestion Respiratory: reports: No Symptoms reported Cardiac: reports: No Symptoms Reported GI: reports: No Symptoms Reported : reports: No Symptoms Reported Musculoskeletal: reports: No Symptoms Reported Integumentary: reports: No Symptoms Reported Neuro: reports: Tremors Endocrine: reports: No Symptoms Reported Hematology: reports: No Symptoms Reported Psychiatric: reports: Anxious, Depressed Other Systems: Reviewed and Negative Patient History - Patient Medical History Hx Anemia: No Hx Asthma: No Hx Chronic Obstructive Pulmonary Disease (COPD): No Hx Cancer: No Hx Cardiac Disorders: No Hx Congestive Heart Failure: No Hx Hypertension: No Hx Hypercholesterolemia: No Hx Pacemaker: No HX Cerebrovascular Accident: No Hx Seizures: No Hx Dementia: No Hx Diabetes: No Hx Gastrointestinal Disorders: No Hx Liver Disease: No Hx Genitourinary Disorders: No Hx Sexually Transmitted Disorders: No Hx Renal Disease (ESRD): No Hx Thyroid Disease: No Hx Human Immunodeficiency Virus (HIV): No Hx Hepatitis C: Yes (diagnosed 2006 - no treatment) Hx Depression: Yes Hx Suicide Attempt: No (DENIES) Hx Bipolar Disorder: No Hx Schizophrenia: No - Patient Surgical History Past Surgical History: No Hx Neurologic Surgery: No Hx Cataract Extraction: No Hx Cardiac Surgery: No Hx Lung Surgery: No Hx Breast Surgery: No Hx Breast Biopsy: No Hx Abdominal Surgery: No Hx Appendectomy: No Hx Cholecystectomy: No Hx Genitourinary Surgery: No Hx Section: No Hx Orthopedic Surgery: No Hx Hysterectomy: No Anesthesia Reaction: No - PPD History Documented Results: Positive w/proof Results: CXR ON 07/2016 PPD to be Administered?: No - Reproductive History Patient is a Female of Child Bearing Age (11 -55 yrs old): No - Smoking Cessation Smoking history: Current every day smoker Have you smoked in the past 12 months: Yes Aproximately how many cigarettes per day: 10 If you are a former smoker, when did you quit?: 01/12/12 Cigars Per Day: 0 Hx Chewing Tobacco Use: No Initiated information on smoking cessation: Yes 'Breaking Loose' booklet given: 12/08/16 - Substance & Tx. History Hx Alcohol Use: Yes Hx Substance Use: Yes Substance Use Type: Alcohol, Heroin Hx Substance Use Treatment: Yes (DETOX AND REHAB: [facility] 10/2016) - Substances Abused Alcohol Route: Oral Frequency: Daily Amount used: 1 PINT OF LIQUOR, 2 40OZ OF BEER Age of first use: 17 Date of Last Use: 12/07/16 Heroin Route: Injection Frequency: Daily Amount used: 3 BAGS Age of first use: 16 Date of Last Use: 12/07/16 PCP Route: Smoking Frequency: 3-6 times per week Amount used: $30 Age of first use: 19 Date of Last Use: 12/05/16 Family Disease History - Family Disease History Family Disease History: Diabetes: Father (living, ), Mother (alive), Other: Father, Brother (one, living, bipolar) Admission Physical Exam [facility] - Vital Signs Vital Signs: Last Vital Signs Temp Pulse Resp BP Pulse Ox 97.7 F 80 16 114/77 12/08/16 02:06 12/08/16 02:06 12/08/16 02:06 12/08/16 02:06 - Physical General Appearance: Yes: Irritable, Sweating, Anxious HEENTM: Yes: Hearing grossly Normal, Normocephalic, Normal Voice Respiratory: Yes: Within Normal Limits, Lungs Clear Neck: Yes: No masses,lesions,Nodules Breast: Yes: Breast Exam Deferred Cardiology: Yes: Regular Rhythm, Regular Rate Abdominal: Yes: Normal Bowel Sounds, Non Tender, Flat Genitourinary: Yes: Other (NO COMPLIANTS) Back: Yes: Normal Inspection Musculoskeletal: Yes: Gait Steady, Pelvis Stable Extremities: Yes: Normal Inspection, Normal Range of Motion Neurological: Yes: Fully Oriented, Alert, Motor Strength 5/5, Normal Mood/Affect , Normal Response Integumentary: Yes: Track [place] Lymphatic: Yes: Within Normal Limits - Diagnostic (1) Opioid dependence with withdrawal Current Visit: Yes Status: Chronic (2) Nicotine dependence Current Visit: Yes Status: Chronic Qualifiers: Nicotine product type: cigarettes Substance use status: in withdrawal Qualified Code(s): F17.213 - Nicotine dependence, cigarettes, with withdrawal; F17.213 - Nicotine dependence, cigarettes, with withdrawal (3) PCP dependence Current Visit: Yes Status: Chronic (4) Alcohol dependence with uncomplicated withdrawal Current Visit: Yes Status: Chronic (5) History of positive PPD Current Visit: Yes Status: Chronic Comment: CXR PERFORMED ON 07/2016-WNL Cleared for Admission [facility] - Detox or Rehab [facility] Level of Care: Medically Managed Detox Regimen/Protocol: Methadone/Valium [facility] Breath Alcohol Content Breath Alcohol Content: 0.027 Vital Signs - Vital Signs Vital Signs Refused: No Temperature: 97.7 F Temperature Source: Oral Pulse Rate: 80 Respiratory Rate: 16 Blood Pressure: 114/77 BP Location: Left Arm Blood Pressure Position: Sitting - Height Height: 5 ft 9 in - Weight Weight: 180 lb Weight Measurement Method: Standing Scale Body Mass Index (BMI): 26.6 Urine Drug Screen - Control Is Test Valid: Yes - Results Drug Screen Negative: No Urine Drug Screen Results: THC-Marijuana, KIKO-Cocaine, OPI-Opiates, PCP- Phencyclidine
[2016-12-08] MEDS ORDERED: LOPERAMIDE HCL 2 MG CAPSULE PO PRN (01:54)
[2016-12-08] MEDS ORDERED: MENTHOL/PHENOL 1 EACH UD MM PRN (01:54)
[2016-12-08] MEDS ORDERED: P-EPHED 60MG/TRIPROLIDI 2.5MG TABLET PO PRN (01:54)
[2016-12-08] MEDS ORDERED: MAGNESIUM HYDROX 2400MG/30ML ORAL SUSPENSION 30 ML CUP PO PRN (01:54)
[2016-12-08] MEDS ORDERED: hydrOXYzine PAMOATE 50 MG CAPSULE (FP) PO PRN (01:54)
[2016-12-08] MEDS ORDERED: MAGNESIUM CITRATE 300 ML BOTTLE PO PRN (01:54)
[2016-12-08] MEDS ORDERED: diphenhydrAMINE HCL 50 MG CAPSULE PO PRN (01:54)
[2016-12-08] MEDS ORDERED: IBUPROFEN 400 MG TABLET (FP) PO PRN (01:54)
[2016-12-08] MEDS ORDERED: ACETAMINOPHEN 325 MG TABLET (FP) PO PRN (01:54)
[2016-12-08] MEDS ORDERED: guaiFENesin/D-METHORPHAN HB 10 ML UNIT-DOSE CUPS PO PRN (01:54)
[2016-12-08] MEDS ORDERED: diazePAM 5 MG TABLET PO ONE (01:54)
[2016-12-08] MEDS ORDERED: MAG HYDROX/AL HYDROX/SIMETH 30 ML UNIT-DOSE CUP PO PRN (01:54)
[2016-12-08] MEDS ORDERED: METHADONE HCL 10 MG TABLET (FOR DETOX USE ONLY) PO ONE ×3 (01:54→23:00)
[2016-12-08] MEDS ORDERED: NICOTINE POLACRILEX 2 MG GUM BC PRN (01:54)
[2016-12-08 02:06] VITALS: BMI 26.6
[2016-12-08] MEDS: diazePAM 5 MG TABLET PO SCH ×3 (05:59→22:22)
[2016-12-08 10:05] LABS: MCHC 33.8 g/dl (32.0-35.9); MEAN CELL VOLUME 85.8 fl (80-96); MEAN PLT VOLUME 8.1 fl (7.5-11.1); PLATELET COUNT 189 K/MM3 (134-434); RDW 14.3 % (11.9-15.9); WHITE BLOOD COUNT 5.6 K/mm3 (4.0-10.0)
[2016-12-08] MEDS: diazePAM 5 MG TABLET PO PRN ×3 (10:19→20:24)
[2016-12-08] MEDS: PRENATAL VITAMINS W/ FOLIC ACID TABLET (FP) PO SCH (10:19)
[2016-12-08 10:20] LABS: ALBUMIN 3.5 g/dl (3.4-5.0); ALK PHOS 74 U/L (45-117); ANION GAP 8 (8-16); BILIRUBIN,TOTAL 1.1 mg/dL (0.2-1.0); CALCIUM 8.4 mg/dL (8.5-10.1); CO2 27 mmol/L (21-32); CREATININE 0.8 mg/dL (0.7-1.3); GLUCOSE,RANDOM 98 mg/dL (74-106); SGOT/AST 25 U/L (15-37); SGPT/ALT 44 U/L (12-78)
[2016-12-08] MEDS: NICOTINE 21 MG/24 HOURS TOPICAL PATCH TD SCH (10:20)
--- NOTE | 2016-12-08 13:16 | CONSULT ---
[facility] Psychiatric Consult - Data Date of interview: 12/08/16 Admission source: [facility] Identifying data: Readmission to [facility] for this 46 y/o [place]born male seeking detox treatment on for heroin,alcohol and phencyclidine dependence.Patient is single without children,undomiciled,unemployed and currently deprived of financial assistance (welfare reportedly revoked). Substance Abuse History: Discussed with patient in this session.Addictions confirmed. Smoking history: Current every day smoker. Have you smoked in the past 12 months: Yes. Aproximately how many cigarettes per day: 10. If you are a former smoker, when did you quit?: 01/12/12. Cigars Per Day: 0. Hx Chewing Tobacco Use: No. Initiated information on smoking cessation: Yes. 'Breaking Loose' booklet given: 12/08/16. - Substance & Tx. History. Hx Alcohol Use: Yes. Hx Substance Use: Yes. Substance Use Type: Alcohol, Heroin. Hx Substance Use Treatment: Yes (DETOX AND REHAB: [facility] 10/2016). - Substances Abused. Alcohol. Route: Oral. Frequency: Daily. Amount used: 1 PINT OF LIQUOR, 2 40OZ OF BEER. Age of first use: 17. Date of Last Use: 12/07/16. Heroin. Route: Injection. Frequency: Daily. Amount used: 3 BAGS. Age of first use: 16. Date of Last Use: 12/07/16. PCP. Route: Smoking. Frequency : 3-6 times per week. Amount used: $30. Age of first use: 19. Date of Last Use: 12/05/16 Medical History: Hepatitis C. Psychiatric History: Patient denies. Physical/Sexual Abuse/Trauma History: Patient denies. Additional Comment: Urine Drug Screen Results: THC-Marijuana, KIKO-Cocaine, OPI- Opiates, PCP-Phencyclidine Mental Status Exam - Mental Status Exam Alert and Oriented to: Time, Place, Person Cognitive Function: Good Patient Appearance: Well Groomed Mood: Nervous, Withdrawn, Anxious, Irritable Affect: Mood Congruent Patient Behavior: Fatigued, Cooperative Speech Pattern: Clear Voice Loudness: Normal Thought Process: Intact, Goal Oriented Thought Disorder: Not Present Hallucinations: Denies Suicidal Ideation: Denies Homicidal Ideation: Denies Insight/Judgement: Poor Sleep: Poorly, Difficulty falling asleep Appetite: Good Muscle strength/Tone: Normal Gait/Station: Normal Psychiatric Findings - Problem List ([place] 1, 2,3) (1) Opioid dependence with withdrawal Current Visit: Yes Status: Acute (2) Alcohol dependence with uncomplicated withdrawal Current Visit: Yes Status: Acute (3) PCP dependence Current Visit: Yes Status: Acute (4) Cocaine dependence Current Visit: Yes Status: Acute (5) Marihu[place]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Detoxification.Ambien 10 mg po hs prn.Patient is made aware of potential for parasomnias.Agrees with careplan.Observation.
--- NOTE | 2016-12-08 13:24 | EKG ---
Test Reason : Blood Pressure : / mmHG Vent. Rate : 059 BPM Atrial Rate : 059 BPM P-R Int : 136 ms QRS Dur : 086 ms QT Int : 406 ms P-R-T Axes : 061 068 043 degrees QTc Int : 401 ms SINUS BRADYCARDIA WITH SINUS ARRHYTHMIA OTHERWISE NORMAL ECG WHEN COMPARED WITH ECG OF 09-OCT-2016 13:49, NO SIGNIFICANT CHANGE WAS FOUND Confirmed by HEATHER VOGT MD ([id number]) on 12/08/2016 1:24:24 PM Referred By: Confirmed By:HEATHER VOGT MD
--- NOTE | 2016-12-08 13:25 | EKG ---
Test Reason : Blood Pressure : / mmHG Vent. Rate : 064 BPM Atrial Rate : 064 BPM P-R Int : 150 ms QRS Dur : 092 ms QT Int : 422 ms P-R-T Axes : 064 062 023 degrees QTc Int : 435 ms NORMAL SINUS RHYTHM NORMAL ECG WHEN COMPARED WITH ECG OF 08-DEC-2016 02:30, NONSPECIFIC T WAVE ABNORMALITY NOW EVIDENT IN ANTERIOR LEADS Confirmed by HEATHER VOGT MD ([id number]) on 12/08/2016 1:25:03 PM Referred By: Confirmed By:HEATHER VOGT MD
--- NOTE | 2016-12-08 14:16 | PN ---
[facility] CIWA - CIWA Score Nausea/Vomitin-No Nausea/No Vomiting Muscle Tremors: 4-Moderate,w/Arms Extend Anxiety: 3 Agitation: 3 Paroxysmal Sweats: 3 Orientation: 0-Oriented Tacttile Disturbances: 2-Mild Itch/Numbness/Burn Auditory Disturbances: 1-Very Mild Visual Disturbances: 2-Mild Sensitivity Headache: 0-None Present CIWA-Ar Total Score: 18 S COWS - Scale Resting Pulse: 1= [place] 81-100 Sweatin= Chills/Flushing Restless Observation: 1= Difficult to Sit Still Pupil Size: 0= Normal to Room Light Bone or Joint Aches: 2= Severe Diffuse Aches Runny Nose/ Eye Tearin= Runny Nose/Eyes GI Upset > 30mins: 1= Stomach Cramp Tremor Observation of Outstretched Hands: 2= Slight Tremor Visible Yawning Observation: 1= 1-2x During Session Anxiety or Irritability: 2=Irritable/Anxious Goose Flesh Skin: 0=Smooth Skin COWS Score: 13 S Progress Note (SOAP) Subjective: Tremors, Sweating, Fatigue. Objective: PT. A & O X 3. NO ACUTE DISTRESS. 12/08/16 14:19 Vital Signs Temperature 96.2 F L 12/08/16 13:37 Pulse Rate 81 12/08/16 13:37 Respiratory Rate 17 12/08/16 13:37 Blood Pressure 111/75 12/08/16 13:37 O2 Sat by Pulse Oximetry (%) Laboratory Tests 12/08/16 12/08/16 12/08/16 07:00 07:00 07:00 WBC 5.6 RBC 4.58 Hgb 13.3 Hct 39.3 MCV 85.8 MCH 29.0 MCHC 33.8 RDW 14.3 Plt Count 189 MPV 8.1 Sodium 141 Potassium 3.3 L Chloride 106 Carbon Dioxide 27 Anion Gap 8 BUN 18 Creatinine 0.8 Creat Clearance w eGFR > 60 Random Glucose 98 Calcium 8.4 L Total Bilirubin 1.1 H D AST 25 D ALT 44 Alkaline Phosphatase 74 Total Protein 7.0 Albumin 3.5 RPR Titer Nonreactive LABS NOTED. UA RESULTS PENDING. 12/08/16 14:55 Assessment: 12/08/16 14:19 WITHDRAWAL SYMPTOMS. HYPOKALEMIA. 12/08/16 14:55 Plan: CONTINUE DETOX. K-DUR, 20 MEQ PO X 1 NOW, THEN 20 MEQ PO BID AFTER.
[2016-12-08] MEDS ORDERED: POTASSIUM CHLORIDE TABS 20 MEQ TABLET.ER (FP) PO ONE (14:31)
[2016-12-08] MEDS: POTASSIUM CHLORIDE TABS 20 MEQ TABLET.ER (FP) PO SCH (17:23)
[2016-12-08] MEDS: ZOLPIDEM TARTRATE 10 MG TABLET (PARK CARE ONLY) PO PRN (22:22)
[2016-12-08] MEDS: THIAMINE HCL 100 MG TABLET (FP) PO SCH (22:22)
[2016-12-09] MEDS: diazePAM 5 MG TABLET PO SCH ×3 (05:25→22:23)
[2016-12-09] MEDS: diazePAM 5 MG TABLET PO PRN ×4 (08:50→20:56)
[2016-12-09] MEDS ORDERED: METHADONE HCL 10 MG TABLET (FOR DETOX USE ONLY) PO SCH (10:00)
[2016-12-09] MEDS: POTASSIUM CHLORIDE TABS 20 MEQ TABLET.ER (FP) PO SCH ×2 (10:27→17:44)
[2016-12-09] MEDS: PRENATAL VITAMINS W/ FOLIC ACID TABLET (FP) PO SCH (10:27)
[2016-12-09] MEDS: NICOTINE 21 MG/24 HOURS TOPICAL PATCH TD SCH (10:28)
[2016-12-09] MEDS: TOLNAFTATE 1% CREAM 15 GM TUBE TP SCH ×2 (13:11→22:25)
--- NOTE | 2016-12-09 13:25 | PN ---
[facility] CIWA - CIWA Score Nausea/Vomitin-No Nausea/No Vomiting Muscle Tremors: 4-Moderate,w/Arms Extend Anxiety: 4-Mod. Anxious/Guarded Agitation: 1-Slight > Activity Paroxysmal Sweats: No Perspiration Orientation: 0-Oriented Tacttile Disturbances: 3-Moderate Itch/Numb/Burn Auditory Disturbances: 0-None Visual Disturbances: 3-Moderate Sensitivity Headache: 0-None Present CIWA-Ar Total Score: 15 S COWS - Scale Resting Pulse: 0= [place] 80 or Below Sweatin= Chills/Flushing Restless Observation: 0= Sits Still Pupil Size: 0= Normal to Room Light Bone or Joint Aches: 2= Severe Diffuse Aches Runny Nose/ Eye Tearin= None GI Upset > 30mins: 1= Stomach Cramp Tremor Observation of Outstretched Hands: 2= Slight Tremor Visible Yawning Observation: 2= >3x During Session Anxiety or Irritability: 2=Irritable/Anxious Goose Flesh Skin: 3=Piloerection COWS Score: 13 S Progress Note (SOAP) Subjective: Tremors, Constipation, Fatigue, Anxious. Objective: PT. A & O X 3. NO ACUTE DISTRESS. 12/09/16 13:22 Vital Signs Temperature 96.0 F L 12/09/16 09:08 Pulse Rate 66 12/09/16 09:08 Respiratory Rate 18 12/09/16 09:08 Blood Pressure 132/88 12/09/16 09:08 O2 Sat by Pulse Oximetry (%) Laboratory Tests 12/08/16 12/08/16 12/08/16 07:00 07:00 07:00 WBC 5.6 RBC 4.58 Hgb 13.3 Hct 39.3 MCV 85.8 MCH 29.0 MCHC 33.8 RDW 14.3 Plt Count 189 MPV 8.1 Sodium 141 Potassium 3.3 L Chloride 106 Carbon Dioxide 27 Anion Gap 8 BUN 18 Creatinine 0.8 Creat Clearance w eGFR > 60 Random Glucose 98 Calcium 8.4 L Total Bilirubin 1.1 H D AST 25 D ALT 44 Alkaline Phosphatase 74 Total Protein 7.0 Albumin 3.5 RPR Titer Nonreactive LABS NOTED. UA RESULTS PENDING. 12/09/16 13:24 Assessment: 12/09/16 13:22 WITHDRAWAL SYMPTOMS. HYPOKALEMIA. 12/09/16 13:24 Plan: CONTINUE DETOX.
[2016-12-09 14:49] LABS: URINE APPEARANCE CLEAR; URINE BILIRUBIN NEGATIVE (NEGATIVE); URINE BLOOD NEGATIVE (NEGATIVE); URINE COLOR LT. YELLOW; URINE GLUCOSE (UA) NEGATIVE (NEGATIVE); URINE KETONE NEGATIVE (NEGATIVE); URINE NITRITE NEGATIVE (NEGATIVE); URINE PROTEIN NEGATIVE (NEGATIVE); URINE UROBILINOGEN 0.2 mg/dL (0.2-1.0)
[2016-12-09 18:59] LABS: URINE LEUK ESTERASE Negative (NEGATIVE)
[2016-12-09] MEDS: THIAMINE HCL 100 MG TABLET (FP) PO SCH (22:23)
[2016-12-09] MEDS: ZOLPIDEM TARTRATE 10 MG TABLET (PARK CARE ONLY) PO PRN (22:23)
[2016-12-10] MEDS: diazePAM 5 MG TABLET PO PRN ×3 (05:10→18:53)
[2016-12-10] MEDS: NICOTINE 21 MG/24 HOURS TOPICAL PATCH TD SCH (10:52)
[2016-12-10] MEDS: METHADONE HCL 5 MG TABLET (FOR DETOX USE ONLY) PO SCH (10:52)
[2016-12-10] MEDS: diazePAM 5 MG TABLET PO SCH ×2 (10:53→22:12)
[2016-12-10] MEDS: PRENATAL VITAMINS W/ FOLIC ACID TABLET (FP) PO SCH (10:53)
[2016-12-10] MEDS: POTASSIUM CHLORIDE TABS 20 MEQ TABLET.ER (FP) PO SCH ×2 (10:53→17:24)
[2016-12-10] MEDS: TOLNAFTATE 1% CREAM 15 GM TUBE TP SCH ×2 (10:56→22:12)
--- NOTE | 2016-12-10 11:41 | PN ---
[facility] Progress Note (SOAP) Subjective: Sweating, Fatigue, Constipation (minimal effect from MOM). Objective: PT. A & O X 3, OBSERVED AMBULATING ON UNIT. NO ACUTE DISTRESS. 12/10/16 11:39 Vital Signs Temperature 96.8 F L 12/10/16 10:00 Pulse Rate 79 12/10/16 10:00 Respiratory Rate 18 12/10/16 10:00 Blood Pressure 127/80 12/10/16 10:00 O2 Sat by Pulse Oximetry (%) Laboratory Tests 12/08/16 12/08/16 12/08/16 07:00 07:00 07:00 WBC 5.6 RBC 4.58 Hgb 13.3 Hct 39.3 MCV 85.8 MCH 29.0 MCHC 33.8 RDW 14.3 Plt Count 189 MPV 8.1 Sodium 141 Potassium 3.3 L Chloride 106 Carbon Dioxide 27 Anion Gap 8 BUN 18 Creatinine 0.8 Creat Clearance w eGFR > 60 Random Glucose 98 Calcium 8.4 L Total Bilirubin 1.1 H D AST 25 D ALT 44 Alkaline Phosphatase 74 Total Protein 7.0 Albumin 3.5 Urine Color Urine Appearance Urine pH Ur Specific [place] Urine Protein Urine Glucose (UA) Urine Ketones Urine Blood Urine Nitrite Urine Bilirubin Urine Urobilinogen Ur Leukocyte Esterase RPR Titer Nonreactive 12/09/16 09:40 WBC RBC Hgb Hct MCV MCH MCHC RDW Plt Count MPV Sodium Potassium Chloride Carbon Dioxide Anion Gap BUN Creatinine Creat Clearance w eGFR Random Glucose Calcium Total Bilirubin AST ALT Alkaline Phosphatase Total Protein Albumin Urine Color Lt. yellow Urine Appearance Clear Urine pH 6.0 Ur Specific [place] 1.015 Urine Protein Negative Urine Glucose (UA) Negative Urine Ketones Negative Urine Blood Negative Urine Nitrite Negative Urine Bilirubin Negative Urine Urobilinogen 0.2 Ur Leukocyte Esterase Negative RPR Titer LABS NOTED. Assessment: 12/10/16 11:39 WITHDRAWAL SYMPTOMS. Plan: CONTINUE DETOX. COLACE, SENNA PO BID FOR CONSTIPATION. INCREASE DAILY PO FLUID INTAKE.
[2016-12-10] MEDS: SENNOSIDES 8.6MG TABLET (FP) PO SCH ×2 (11:50→22:12)
[2016-12-10] MEDS: DOCUSATE SODIUM 100 MG CAPSULE (FP) PO SCH ×2 (11:50→22:12)
[2016-12-10] MEDS: ZOLPIDEM TARTRATE 10 MG TABLET (PARK CARE ONLY) PO PRN (22:12)
[2016-12-10] MEDS: THIAMINE HCL 100 MG TABLET (FP) PO SCH (22:12)
[2016-12-11] MEDS: DOCUSATE SODIUM 100 MG CAPSULE (FP) PO SCH (10:18)
[2016-12-11] MEDS: diazePAM 5 MG TABLET PO SCH ×2 (10:18→22:19)
[2016-12-11] MEDS: PRENATAL VITAMINS W/ FOLIC ACID TABLET (FP) PO SCH (10:18)
[2016-12-11] MEDS: SENNOSIDES 8.6MG TABLET (FP) PO SCH (10:18)
[2016-12-11] MEDS: NICOTINE 21 MG/24 HOURS TOPICAL PATCH TD SCH (10:18)
[2016-12-11] MEDS: POTASSIUM CHLORIDE TABS 20 MEQ TABLET.ER (FP) PO SCH ×2 (10:18→17:01)
[2016-12-11] MEDS: METHADONE HCL 5 MG TABLET (FOR DETOX USE ONLY) PO SCH (10:19)
[2016-12-11] MEDS: TOLNAFTATE 1% CREAM 15 GM TUBE TP SCH ×2 (10:20→23:01)
[2016-12-11] MEDS ORDERED: LIDOCAINE 5% TOPICAL PATCH TP ONE (10:30)
--- NOTE | 2016-12-11 14:24 | PN ---
[facility] Progress Note (SOAP) Subjective: Constipation, Body Aches, Fatigue. Objective: PT. A & O X 2 (DISORIENTED ABOUT DAY / DATE). NO ACUTE DISTRESS. 12/11/16 14:22 Vital Signs Temperature 97.9 F 12/11/16 13:34 Pulse Rate 80 12/11/16 13:34 Respiratory Rate 18 12/11/16 13:34 Blood Pressure 114/62 12/11/16 13:34 O2 Sat by Pulse Oximetry (%) Laboratory Tests 12/08/16 12/08/16 12/08/16 07:00 07:00 07:00 WBC 5.6 RBC 4.58 Hgb 13.3 Hct 39.3 MCV 85.8 MCH 29.0 MCHC 33.8 RDW 14.3 Plt Count 189 MPV 8.1 Sodium 141 Potassium 3.3 L Chloride 106 Carbon Dioxide 27 Anion Gap 8 BUN 18 Creatinine 0.8 Creat Clearance w eGFR > 60 Random Glucose 98 Calcium 8.4 L Total Bilirubin 1.1 H D AST 25 D ALT 44 Alkaline Phosphatase 74 Total Protein 7.0 Albumin 3.5 Urine Color Urine Appearance Urine pH Ur Specific [place] Urine Protein Urine Glucose (UA) Urine Ketones Urine Blood Urine Nitrite Urine Bilirubin Urine Urobilinogen Ur Leukocyte Esterase RPR Titer Nonreactive 12/09/16 09:40 WBC RBC Hgb Hct MCV MCH MCHC RDW Plt Count MPV Sodium Potassium Chloride Carbon Dioxide Anion Gap BUN Creatinine Creat Clearance w eGFR Random Glucose Calcium Total Bilirubin AST ALT Alkaline Phosphatase Total Protein Albumin Urine Color Lt. yellow Urine Appearance Clear Urine pH 6.0 Ur Specific [place] 1.015 Urine Protein Negative Urine Glucose (UA) Negative Urine Ketones Negative Urine Blood Negative Urine Nitrite Negative Urine Bilirubin Negative Urine Urobilinogen 0.2 Ur Leukocyte Esterase Negative RPR Titer LABS NOTED. Assessment: 12/11/16 14:23 WITHDRAWAL SYMPTOMS. Plan: CONTINUE DETOX. CONTINUE COLACE, SENNA PO BID FOR CONSTIPATION. INCREASE DAILY PO FLUID INTAKE.
[2016-12-11] MEDS ORDERED: MAGNESIUM CITRATE 300 ML BOTTLE PO PRN (16:15)
[2016-12-11] MEDS: ZOLPIDEM TARTRATE 10 MG TABLET (PARK CARE ONLY) PO PRN (21:58)
[2016-12-11] MEDS ORDERED: LIDOCAINE PATCH REMOVAL MC SCH (22:00)
[2016-12-11] MEDS: THIAMINE HCL 100 MG TABLET (FP) PO SCH (22:18)
[2016-12-12] MEDS ORDERED: METHADONE HCL 10 MG TABLET (FOR DETOX USE ONLY) PO SCH (10:00)
[2016-12-12] MEDS ORDERED: diazePAM 5 MG TABLET PO SCH (10:00)
[2016-12-12] MEDS: POTASSIUM CHLORIDE TABS 20 MEQ TABLET.ER (FP) PO SCH ×2 (10:14→17:03)
[2016-12-12] MEDS: PRENATAL VITAMINS W/ FOLIC ACID TABLET (FP) PO SCH (10:14)
[2016-12-12] MEDS: TOLNAFTATE 1% CREAM 15 GM TUBE TP SCH ×2 (10:15→22:08)
[2016-12-12] MEDS: NICOTINE 21 MG/24 HOURS TOPICAL PATCH TD SCH (10:15)
[2016-12-12] MEDS ORDERED: LIDOCAINE 5% TOPICAL PATCH TP ONE (13:39)
--- NOTE | 2016-12-12 14:24 | PN ---
[facility] Progress Note (SOAP) Subjective: Anxious, sweating, diarrhea (stated he took citroma yesterday due to constipation and had 2 diarrheal stool today). Patient is scheduled for discharge home tomorrow. Objective: 12/12/16 14:20 Last Vital Signs Temp Pulse Resp BP Pulse Ox 98.8 F 81 18 111/60 12/12/16 12:44 12/12/16 12:44 12/12/16 12:44 12/12/16 12:44 Laboratory Tests 12/08/16 12/08/16 12/08/16 07:00 07:00 07:00 WBC 5.6 RBC 4.58 Hgb 13.3 Hct 39.3 MCV 85.8 MCH 29.0 MCHC 33.8 RDW 14.3 Plt Count 189 MPV 8.1 Sodium 141 Potassium 3.3 L Chloride 106 Carbon Dioxide 27 Anion Gap 8 BUN 18 Creatinine 0.8 Creat Clearance w eGFR > 60 Random Glucose 98 Calcium 8.4 L Total Bilirubin 1.1 H D AST 25 D ALT 44 Alkaline Phosphatase 74 Total Protein 7.0 Albumin 3.5 Urine Color Urine Appearance Urine pH Ur Specific [place] Urine Protein Urine Glucose (UA) Urine Ketones Urine Blood Urine Nitrite Urine Bilirubin Urine Urobilinogen Ur Leukocyte Esterase RPR Titer Nonreactive 12/09/16 09:40 WBC RBC Hgb Hct MCV MCH MCHC RDW Plt Count MPV Sodium Potassium Chloride Carbon Dioxide Anion Gap BUN Creatinine Creat Clearance w eGFR Random Glucose Calcium Total Bilirubin AST ALT Alkaline Phosphatase Total Protein Albumin Urine Color Lt. yellow Urine Appearance Clear Urine pH 6.0 Ur Specific [place] 1.015 Urine Protein Negative Urine Glucose (UA) Negative Urine Ketones Negative Urine Blood Negative Urine Nitrite Negative Urine Bilirubin Negative Urine Urobilinogen 0.2 Ur Leukocyte Esterase Negative RPR Titer Labs noted: K 3.3 Assessment: 12/12/16 14:22 Withdrawal symptoms Noted with mild hypokalemia Plan: Continue detox Encouraged to drink lots of water Hypokalemia: encouraged PO potassium supplement
[2016-12-12] MEDS ORDERED: LIDOCAINE PATCH REMOVAL MC SCH ×2 (22:00)
[2016-12-12] MEDS: THIAMINE HCL 100 MG TABLET (FP) PO SCH (22:08)
[2016-12-13] MEDS ORDERED: METHADONE HCL 5 MG TABLET (FOR DETOX USE ONLY) PO SCH (06:00)
[2016-12-13 09:15] VITALS: BP 101/64; PULSE 69; TEMP 97.2
[2016-12-13] MEDS ORDERED: LIDOCAINE 5% TOPICAL PATCH TP SCH (10:00)
[2016-12-13] MEDS: POTASSIUM CHLORIDE TABS 20 MEQ TABLET.ER (FP) PO SCH (10:14)
[2016-12-13] MEDS: PRENATAL VITAMINS W/ FOLIC ACID TABLET (FP) PO SCH (10:15)
[2016-12-13] MEDS: NICOTINE 21 MG/24 HOURS TOPICAL PATCH TD SCH (10:15)
[2016-12-13] MEDS: TOLNAFTATE 1% CREAM 15 GM TUBE TP SCH (10:15)
--- NOTE | 2016-12-13 11:07 | DS ---
[facility] Detox Discharge Summary Admission Date: 12/08/16 Discharge Date: 12/13/16 - History Present History: Alcohol Dependence, Cannabis Dependence, Cocaine Dependence, Opioid Dependence, Pcp Dependence Additional Comments: PATIENT ADVISED TO CONSIDER LOCAL 12-STEP OUTPATIENT 12-STEP / NA / AA SUPPORT GROUPS FOR AFTERCARE. PATIENT WAS DISCHARGED FROM DETOX UNIT IN STABLE MEDICAL CONDITION. Pertinent Past History: Hep C, Nicotine Dependence, History of Positive PPD, Insomnia, Chronic Back Pain. - Physical Exam Results Vital Signs: Vital Signs Temperature 97.2 F L 12/13/16 09:14 Pulse Rate 69 12/13/16 09:14 Respiratory Rate 18 12/13/16 09:14 Blood Pressure 101/64 12/13/16 09:14 O2 Sat by Pulse Oximetry (%) Pertinent Admission Physical Exam Findings: WITHDRAWAL SYMPTOMS. Laboratory Tests 12/08/16 12/08/16 12/08/16 07:00 07:00 07:00 WBC 5.6 RBC 4.58 Hgb 13.3 Hct 39.3 MCV 85.8 MCH 29.0 MCHC 33.8 RDW 14.3 Plt Count 189 MPV 8.1 Sodium 141 Potassium 3.3 L Chloride 106 Carbon Dioxide 27 Anion Gap 8 BUN 18 Creatinine 0.8 Creat Clearance w eGFR > 60 Random Glucose 98 Calcium 8.4 L Total Bilirubin 1.1 H D AST 25 D ALT 44 Alkaline Phosphatase 74 Total Protein 7.0 Albumin 3.5 Urine Color Urine Appearance Urine pH Ur Specific [place] Urine Protein Urine Glucose (UA) Urine Ketones Urine Blood Urine Nitrite Urine Bilirubin Urine Urobilinogen Ur Leukocyte Esterase RPR Titer Nonreactive 12/09/16 09:40 WBC RBC Hgb Hct MCV MCH MCHC RDW Plt Count MPV Sodium Potassium Chloride Carbon Dioxide Anion Gap BUN Creatinine Creat Clearance w eGFR Random Glucose Calcium Total Bilirubin AST ALT Alkaline Phosphatase Total Protein Albumin Urine Color Lt. yellow Urine Appearance Clear Urine pH 6.0 Ur Specific [place] 1.015 Urine Protein Negative Urine Glucose (UA) Negative Urine Ketones Negative Urine Blood Negative Urine Nitrite Negative Urine Bilirubin Negative Urine Urobilinogen 0.2 Ur Leukocyte Esterase Negative RPR Titer LABS NOTED. - Treatment Hospital Course: Detox Protocol Followed, Detoxed Safely, Responded well, Discharged Condition Good Patient has Accepted a Rehab Referral to: NO.PT ADVISED TO CONSIDER LOCAL 12- STEP/NA/AA SUPPORTS GROUP FOR AFTERCARE. - Medication Discharge Medications: Ambulatory Orders NK [No Known Home Medication] 12/16/14 - Diagnosis (1) Opioid dependence with withdrawal Status: Acute (2) Alcohol dependence with uncomplicated withdrawal Status: Acute (3) Cocaine dependence Status: Acute (4) Insomnia Status: Acute (5) Nicotine dependence Status: Acute Qualifiers: Nicotine product type: cigarettes Substance use status: in withdrawal Qualified Code(s): F17.213 - Nicotine dependence, cigarettes, with withdrawal; F17.213 - Nicotine dependence, cigarettes, with withdrawal (6) PCP dependence Status: Acute (7) Chronic low back pain Status: Chronic Qualifiers: Back pain laterality: unspecified (8) History of positive PPD Status: Chronic (9) Substance induced mood disorder Status: Chronic - AMA Did Patient Leave Against Medical Advice: No
== END 2016-12-13 10:40 | disposition home or self-care (01) | DRG 773 ==
LOC: YASAS 01:21 → Y3N 01:25
PROVIDERS: ADMIT Internal Medicine; ATTEND Internal Medicine
PROC: HZ2ZZZZ Detoxification Services for Substance Abuse Treatment (ICD-10-PCS; principal; 2016-12-08)
DX: F11.23 Opioid dependence with withdrawal (principal); F10.230 Alcohol dependence with withdrawal, uncomplicated; F14.20 Cocaine dependence, uncomplicated; F12.20 Cannabis dependence, uncomplicated; F16.20 Hallucinogen dependence, uncomplicated; F17.210 Nicotine dependence, cigarettes, uncomplicated; F19.24 Other psychoactive substance dependence with psychoactive substance-induced mood disorder; G47.00 Insomnia, unspecified; R76.11 Nonspecific reaction to tuberculin skin test without active tuberculosis
CPT/HCPCS: 36415; 80053; 81003; 85027; 86593; 93005; 93010